=== PATIENT | female | born 1990 | race Caucasian/White ===

== ENCOUNTER 2017-10-23 10:21 | Emergency (ER) | payer MEDICAID, SELFPAY ==
[2017-10-23 10:22] VITALS: BP 148/80; PULSE 107; RESP 18; TEMP 36.6; O2SAT 98; BMI 33.8
--- NOTE | 2017-10-23 10:25 | ED.RN ---
OB CONTACTED PT IS 25 WEEKS GESTATION. STATES PT TO BE SEEN IN ED. CHARGE NURSE AWARE POLICY IS TO SEND TO OB FIRST. OB REFUSED
--- NOTE | 2017-10-23 10:45 | ED.VISSUMM ---
- ER Visit Summary Date of Service: 10/23/17 Chief Complaint: Abdominal pain History of Present Illness: The patient is a 27 F presenting with left lower quadrant abdominal pain. She states this has been ongoing since . She denies nausea or vomiting. She has mild constipation. She is 25 weeks . She denies vaginal bleeding. She states the feet she feels the baby moving as usual. She is . She has been taking Tylenol at home. She states it worsens with different positions. She talked to her CAPTAIN'S ASSISTANT and they were concerned about UTI. Physical Examination: Vitals are stable. Patient is afebrile. Alert no acute distress. HEENT exam is unremarkable. Neck is supple. Lungs are clear and equal bilaterally. Heart is regular rate and rhythm. Abdomen is soft gravid, mild left lower quadrant tenderness. No rebound or guarding. Back: nontender, no cva tenderness Extremities are unremarkable. Skin is warm and dry. No focal neurologic deficit. Remainder of exam is unremarkable. Emergency Department Course and Treatment: CBC shows white count of 13.1, hemoglobin 10.6. Chemistries unremarkable. Urinalysis shows 0-5 white cells, 5-10 epithelial cells. heart tones 160. Repeat blood pressure 137/79. Patient is feeling improved in the emergency department without any medications. Discussed with Dr. Josse Wade who recommends that she follow up early next week. Advised return to ED for any worsening complaints. Disposition: Discharge home Impression: Abdominal pain in This note was generated with [employer] dictation software. It may contain incorrect words, spelling, and punctuation that were not noted in review of the chart prior to signing ED Disposition - Plan for ED Patient: Chief Complaint: Abd Pain Referrals: Care Physician,No Primary [Primary Care Provider] -
[2017-10-23 11:00] LABS: Absolute Lymphocyte Count 2.13 X10^3/ul (0.83-4.51); Absolute Neutrophil Count 10.1 X10^3/uL (2.0-7.7); Basophil# 0.01 X10^3/uL; Basophil% 0.1 % (0-1); Eosinophil# 0.02 X10^3/uL; Eosinophils% 0.2 % (0-5); Hematocrit 30.8 % (37-47); Hemoglobin 10.6 g/dl (12.0-15.0); Lymphocyte # 2.13 X10^3/ul (4.0); Lymphocyte % 16.2 % (19-41); Mean Corp Hgb Conc 34.4 g/gl (32-36); Mean Corpuscular Hgb 30.3 pg (27.0-32.0); Mean Platelet Vol. 10.6 fl (6.2-12.0); Monocyte# 0.81 X10^3/uL; Monocyte% 6.2 % (0-10); Neutrophil # 10.09 X10^3/uL (2.7-7.7); Neutrophil % 76.8 % (47-70); Platelet Count 180 K/mm3 (150-450); RBC Distribution Width CV 13.5 % (11.6-14.6); White Blood Count 13.1 K/mm3 (4.4-11.0)
[2017-10-23 11:02] LABS: POSITIVE COUNT NO; POSITIVE DIFFERENTIAL NO; POSITIVE MORPHOLOGY NO
[2017-10-23 11:12] LABS: Anion Gap 7 (5-15); BUN 6 mg/dL (7-18); BUN/Creat Ratio 11.3 RATIO (10-20); Calcium,Total 8.7 mg/dL (8.5-10.1); Chloride 108 mmol/L (98-107); Creatinine, Serum 0.53 mg/dL (0.55-1.02); EST Glomerular Filtration Rate 147 mL/min (>60); Est Glom Filt Rate - Afr Amer 178 mL/min (>60); Glucose 91 mg/dL (74-106); Potassium 3.5 mmol/L (3.5-5.1); Sodium Level 139 mmol/L (136-145)
[2017-10-23 11:18] LABS: Color, Urine Yellow (Yellow); Glucose, Dipstick Normal (Normal); Ketone-Dipstick Negative (Negative); Leukocyte Esterase-Dipstick 25 /ul (Negative); Nitrite-Dipstick Negative (Negative); Occult Blood-Urine 250 /ul (Negative); Protein-Dipstick 100 mg/dl (Negative); Urine Bilirubin Dipstick Negative (Negative); Urine Clarity Cloudy (Clear); Urine Urobilinogen 1 mg/dl (Normal)
[2017-10-23 11:25] LABS: Bacteria 1+ /hpf (None Seen); Mucous, Urine 1+ /hpf (<or=2+); Red Blood Cells-Urine 5-10 SEEN /hpf (0-5); Squamous Epithelial Cells - UA 5-10 SEEN /hpf (5-10); White Blood Cells 0-5 SEEN /hpf (0-5)
[2017-10-23 13:25] VITALS: BP 137/79
--- NOTE | 2017-10-23 13:32 | ED.DEP ---
ED Disposition - Plan for ED Patient: Chief Complaint: Abd Pain Instructions: ED Abdominal Pain Unkn Cause Referrals: Care Physician,No Primary [Primary Care Provider] - Brittni Caldwell MD [STAFF PHYSICIAN] -
[2017-10-23 13:46] VITALS: RESP 15
== END 2017-10-23 13:47 | disposition home or self-care (01) ==
PROVIDERS: Emergency Provider Emergency Medicine
DX: O26.892 Other specified pregnancy related conditions, second trimester (principal); R10.32 Left lower quadrant pain; Z3A.25 25 weeks gestation of pregnancy
CPT/HCPCS: 80048; 81001; 85025; 99284; A4216

== ENCOUNTER → 2017-12-07 16:44 | Outpatient (CLI) | payer MEDICAID, SELFPAY ==
[2017-12-07 18:12] LABS: Protein, Urine (Random) 87.6 mg/dL (<11.9); Protein:Creat Ratio 826 mg/g CRE (0-200)
== END ==
PROVIDERS: Visit Provider Obstetrics & Gynecology
DX: R80.9 Proteinuria, unspecified (principal)
CPT/HCPCS: 82570; 84156

== ENCOUNTER 2017-12-08 15:15 | Outpatient (CLI) | payer MEDICAID, SELFPAY ==
[2017-12-08 15:38] VITALS: BMI 34.0
[2017-12-08] MEDS: Ondansetron 4 MG/2 ML Vial IV (16:21)
[2017-12-08] MEDS: proMETHazine 25 MG/ML Syringe 12.5 MG IV (16:21)
[2017-12-08] MEDS: Dextrose 5%-Lactated Ringers 1,000 ML 999 ML IV (16:22)
[2017-12-08 16:35] LABS: Hematocrit 30.9 % (37-47); Hemoglobin 10.4 g/dl (12.0-15.0); Mean Corp Hgb Conc 33.7 g/gl (32-36); Mean Corpuscular Hgb 29.2 pg (27.0-32.0); Mean Corpuscular Volume 86.8 fL (81-99); Platelet Count 181 K/mm3 (150-450); RBC Distribution Width CV 13.4 % (11.6-14.6); RBC Distribution Width SD 41.2 fl (35.1-43.9); Red Blood Count 3.56 M/mm3 (4.2-5.4); White Blood Count 11.8 K/mm3 (4.4-11.0)
[2017-12-08 16:36] LABS: Scan Indicated on CBC? Y/N NO
[2017-12-08 16:48] LABS: ALB/GLOB Ratio 0.6 RATIO (0.9-2.4); AST(SGOT) 24 U/L (15-37); Alanine Aminotransfer ALT/SGPT 31 U/L (13-56); Albumin, Serum 2.4 g/dL (3.2-5.0); Alkaline Phosphatase 162 U/L (45-117); Anion Gap 9 (5-15); BUN 6 mg/dL (7-18); BUN/Creat Ratio 10.9 RATIO (10-20); Calcium,Total 8.6 mg/dL (8.5-10.1); Chloride 109 mmol/L (98-107); Creatinine, Serum 0.55 mg/dL (0.55-1.02); EST Glomerular Filtration Rate 140 mL/min (>60); Est Glom Filt Rate - Afr Amer 170 mL/min (>60); Estimated Creatinine Clearance 121.52 ml/min; Globulin 4.2 g/dL (2.2-4.2); Glucose 106 mg/dL (74-106); Potassium 3.5 mmol/L (3.5-5.1); Protein, Total 6.6 g/dL (6.4-8.2); Sodium Level 141 mmol/L (136-145)
[2017-12-08] MEDS: Lactated Ringers 1,000 ML 200 ML IV (17:26)
--- NOTE | 2017-12-09 02:35 | OB.TRI.NOTE ---
History of Present Illness Date of Service: 12/08/17 Reason For Visit: NAUSEA AND VOMITING Date of Service: 12/08/17 Final CRESCENCIO: 01/31/18 Gestational age: 32 Weeks and 3 Days History of Present Illness: 27 yo @ 32w2d presents with itnractable nausea and vomiting for a few days. she denies any sick contacts and denies diarrhea or fever. she feels weak and dizy and can't charis even fluids down. she has had hyperemesis but was controlled with zzofran and now isn't Home Medications Medication Instructions Recorded Pnv No.95/Ferrous Fum/Folic AC 1 tab PO DAILY 07/16/17 [ Multivitamin Tablet] Ondansetron [Zofran Odt] 4 mg PO Q8H PRN PRN 12/08/17 Allergies No Known Allergies Allergy (Verified 12/07/17 08:40) - Pertinent Past Medical History Pertinent Past Medical History: All Active Problems (Last Reviewed 12/07/17 @ 08:40 by Emma Bergeron) Proteinuria affecting in third trimester (Acute) Contraception management (Acute) Family history of defect (Acute) Rubella non-immune status, antepartum (Acute) Nausea/vomiting in (Acute) Supervision of normal (Acute) Otitis media (Resolved) Physical Exam General: Alert Cardiovascular: Tachycardic Lungs: Normal air movement Abdomen: Soft, Non Tender, Gravid NST - FHR Rate Baby A Baseline: 130 Variability:: Moderate Accelerations:: 15 x 15 Decelerations:: None NST Reactive:: Yes FHR Category:: Category I Uterine Activity:: no regular Impression/Plan 32 weeks nausea vomiting dehydration IVFs, labs WNL, anti emetics- dc home
== END 2017-12-08 18:15 | disposition home or self-care (01) ==
LOC: WPOUT 15:22 → WP 15:23
PROVIDERS: Visit Provider Obstetrics & Gynecology
DX: O21.9 Vomiting of pregnancy, unspecified (principal); E86.0 Dehydration; Z3A.32 32 weeks gestation of pregnancy
CPT/HCPCS: 96361 ×2; 96374; 96375; 36415; 59025; 59050; 80053; 85027; 99218; J7120; A4216; G0378; J2405

== ENCOUNTER → 2017-12-13 17:30 | Outpatient (CLI) | payer MEDICAID, SELFPAY | PROVIDERS: Visit Provider Obstetrics & Gynecology | DX: Z34.90 Encounter for supervision of normal pregnancy, unspecified, unspecified trimester (principal) | CPT/HCPCS: 87086; 87088 ==

== ENCOUNTER → 2017-12-21 16:59 | Outpatient (CLI) | payer MEDICAID, SELFPAY ==
[2017-12-21 17:17] LABS: Protein, Urine (Random) 140.3 mg/dL (<11.9); Protein:Creat Ratio 1564 mg/g CRE (0-200)
== END ==
PROVIDERS: Visit Provider Obstetrics & Gynecology
DX: O12.13 Gestational proteinuria, third trimester (principal); Z3A.00 Weeks of gestation of pregnancy not specified
CPT/HCPCS: 82570; 84156

== ENCOUNTER → 2017-12-22 10:50 | Outpatient (CLI) | payer MEDICAID, SELFPAY ==
[2017-12-22 11:34] LABS: Absolute Lymphocyte Count 2.21 X10^3/ul (0.83-4.51); Absolute Neutrophil Count 9.8 X10^3/uL (2.0-7.7); Basophil# 0.02 X10^3/uL; Basophil% 0.2 % (0-1); Eosinophil# 0.03 X10^3/uL; Eosinophils% 0.2 % (0-5); Hemoglobin 10.9 g/dl (12.0-15.0); Lymphocyte # 2.21 X10^3/ul (4.0); Mean Corpuscular Hgb 28.4 pg (27.0-32.0); Mean Corpuscular Volume 85.9 fL (81-99); Mean Platelet Vol. 11.1 fl (6.2-12.0); Monocyte# 0.89 X10^3/uL; Monocyte% 6.8 % (0-10); Neutrophil # 9.76 X10^3/uL (2.7-7.7); Platelet Count 182 K/mm3 (150-450); RBC Distribution Width CV 13.5 % (11.6-14.6); RBC Distribution Width SD 41.5 fl (35.1-43.9); Red Blood Count 3.84 M/mm3 (4.2-5.4)
[2017-12-22 11:35] LABS: POSITIVE COUNT NO; POSITIVE DIFFERENTIAL NO; POSITIVE MORPHOLOGY NO
[2017-12-22 12:33] LABS: ALB/GLOB Ratio 0.6 RATIO (0.9-2.4); AST(SGOT) 18 U/L (15-37); Alanine Aminotransfer ALT/SGPT 20 U/L (13-56); Albumin, Serum 2.4 g/dL (3.2-5.0); Alkaline Phosphatase 195 U/L (45-117); Anion Gap 10 (5-15); BUN 4 mg/dL (7-18); BUN/Creat Ratio 6.6 RATIO (10-20); Calcium,Total 8.7 mg/dL (8.5-10.1); Chloride 107 mmol/L (98-107); EST Glomerular Filtration Rate 126 mL/min (>60); Est Glom Filt Rate - Afr Amer 153 mL/min (>60); Globulin 4.2 g/dL (2.2-4.2); Glucose 101 mg/dL (74-106); LDH 178 U/L (84-246); Potassium 3.6 mmol/L (3.5-5.1); Protein, Total 6.6 g/dL (6.4-8.2); Sodium Level 138 mmol/L (136-145); Uric Acid 4.7 mg/dL (2.6-6.0)
== END ==
PROVIDERS: Visit Provider Obstetrics & Gynecology
DX: O12.13 Gestational proteinuria, third trimester (principal); Z3A.00 Weeks of gestation of pregnancy not specified
CPT/HCPCS: 36415; 80053; 83615; 84550; 85025; 87086; 87088

== ENCOUNTER → 2017-12-22 14:28 | Outpatient (CLI) | payer MEDICAID, SELFPAY | PROVIDERS: Visit Provider Obstetrics & Gynecology | DX: O12.13 Gestational proteinuria, third trimester (principal); Z3A.00 Weeks of gestation of pregnancy not specified | CPT/HCPCS: 87086 ==

== ENCOUNTER → 2017-12-24 13:43 | Outpatient (CLI) | payer MEDICAID, SELFPAY ==
[2017-12-24 13:12] LABS: Absolute Lymphocyte Count 2.53 X10^3/ul (0.83-4.51); Absolute Neutrophil Count 10.4 X10^3/uL (2.0-7.7); Basophil# 0.02 X10^3/uL; Basophil% 0.1 % (0-1); Eosinophil# 0.02 X10^3/uL; Eosinophils% 0.1 % (0-5); Hematocrit 33.7 % (37-47); Hemoglobin 11.2 g/dl (12.0-15.0); Lymphocyte # 2.53 X10^3/ul (4.0); Lymphocyte % 18.2 % (19-41); Mean Corp Hgb Conc 33.2 g/gl (32-36); Mean Corpuscular Hgb 28.6 pg (27.0-32.0); Mean Corpuscular Volume 86.2 fL (81-99); Mean Platelet Vol. 11.3 fl (6.2-12.0); Monocyte# 0.83 X10^3/uL; Neutrophil # 10.44 X10^3/uL (2.7-7.7); Platelet Count 188 K/mm3 (150-450); RBC Distribution Width CV 13.6 % (11.6-14.6); RBC Distribution Width SD 41.9 fl (35.1-43.9); Red Blood Count 3.91 M/mm3 (4.2-5.4); White Blood Count 13.9 K/mm3 (4.4-11.0)
[2017-12-24 13:16] LABS: POSITIVE COUNT NO; POSITIVE DIFFERENTIAL NO; POSITIVE MORPHOLOGY NO
[2017-12-24 13:27] LABS: Glucose Challenge Gest 1H 50g 116 mg/dL (70-140)
--- NOTE | 2017-12-24 13:44 | US_ITS ---
STUDY: SECOND AND THIRD TRIMESTER OBSTETRICAL ULTRASOUND - LIMITED REASON FOR EXAM: Female, 27 years old. growth. LMP: 04/26/2017 PRIOR ULTRASOUND: None. TECHNIQUE: Transabdominal ultrasound evaluation was performed. FINDINGS: There is a single intrauterine fetus. The fetus is in a cephalic presentation. There is demonstrated cardiac activity with a heart rate of 139 bpm. There is a normal amniotic fluid volume. The largest amniotic fluid pocket measures 3.1 cm. The amniotic fluid index (MENA) is 6.11 cm. The placenta is posterior and not low lying There are Grade 0 placental changes. The cervix is not visualized. BIOMETRY: BPD: 9.22 cm: 37 weeks, 4 days HC: 32.5 cm: 36 weeks, 6 days AC: 32.96 cm: 37 weeks, 0 days FL: 7.18 cm: 36 weeks, 6 days Age by LMP: 34 weeks, 4 days. CRESCENCIO by LMP: 01/31/2018. age by prior US: 20 weeks, 2 days. CRESCENCIO by prior US: January 22, 2018. age by current US: 37 weeks, 1 days. CRESCENICO by current US: January 13, 2018. Estimated weight: 3066 grams, +/- 448 grams US/OB Limited With Biometrics IMPRESSION: Single intrauterine fetus with an estimated gestational age by ultrasound of 37 weeks and 1 day. Electronically Signed: Tamiko Dos Santos MD at 23:22 EDT Tel , Service support ,
== END ==
PROVIDERS: Visit Provider Obstetrics & Gynecology
DX: O12.13 Gestational proteinuria, third trimester (principal); Z3A.00 Weeks of gestation of pregnancy not specified
CPT/HCPCS: 36415; 76816; 82950; 85025

== ENCOUNTER → 2017-12-27 13:15 | Outpatient (CLI) | payer MEDICAID, SELFPAY ==
[2017-12-27 13:30] LABS: Protein, Urine (Random) 187.2 mg/dL (<11.9); Protein:Creat Ratio 723 mg/g CRE (0-200)
== END ==
PROVIDERS: Visit Provider Nurse Practitioner Women's Health
DX: O12.13 Gestational proteinuria, third trimester (principal); Z3A.00 Weeks of gestation of pregnancy not specified
CPT/HCPCS: 82570; 84156

== ENCOUNTER → 2018-01-04 10:15 | Outpatient (CLI) | payer MEDICAID, SELFPAY ==
[2018-01-04 11:45] LABS: Absolute Lymphocyte Count 2.46 X10^3/ul (0.83-4.51); Absolute Neutrophil Count 10.7 X10^3/uL (2.0-7.7); Basophil# 0.01 X10^3/uL; Basophil% 0.1 % (0-1); Eosinophil# 0.02 X10^3/uL; Eosinophils% 0.1 % (0-5); Hematocrit 34.5 % (37-47); Hemoglobin 11.1 g/dl (12.0-15.0); Lymphocyte # 2.46 X10^3/ul (4.0); Lymphocyte % 17.3 % (19-41); Mean Corp Hgb Conc 32.2 g/gl (32-36); Mean Corpuscular Hgb 27.7 pg (27.0-32.0); Mean Platelet Vol. 11.6 fl (6.2-12.0); Monocyte# 0.93 X10^3/uL; Monocyte% 6.5 % (0-10); Neutrophil # 10.73 X10^3/uL (2.7-7.7); Neutrophil % 75.5 % (47-70); Platelet Count 184 K/mm3 (150-450); RBC Distribution Width CV 14.1 % (11.6-14.6); RBC Distribution Width SD 43.8 fl (35.1-43.9); Red Blood Count 4.01 M/mm3 (4.2-5.4); White Blood Count 14.2 K/mm3 (4.4-11.0)
[2018-01-04 11:47] LABS: POSITIVE COUNT NO; POSITIVE DIFFERENTIAL NO
[2018-01-04 11:48] LABS: POSITIVE MORPHOLOGY NO
[2018-01-04 12:28] LABS: ALB/GLOB Ratio 0.5 RATIO (0.9-2.4); AST(SGOT) 19 U/L (15-37); Alanine Aminotransfer ALT/SGPT 20 U/L (13-56); Albumin, Serum 2.4 g/dL (3.2-5.0); Alkaline Phosphatase 243 U/L (45-117); Anion Gap 9 (5-15); BUN 6 mg/dL (7-18); Calcium,Total 8.9 mg/dL (8.5-10.1); Chloride 107 mmol/L (98-107); Creatinine, Serum 0.67 mg/dL (0.55-1.02); EST Glomerular Filtration Rate 112 mL/min (>60); Est Glom Filt Rate - Afr Amer 136 mL/min (>60); Globulin 4.7 g/dL (2.2-4.2); Glucose 69 mg/dL (74-106); LDH 183 U/L (84-246); Potassium 3.8 mmol/L (3.5-5.1); Protein, Total 7.1 g/dL (6.4-8.2); Sodium Level 139 mmol/L (136-145); Uric Acid 4.8 mg/dL (2.6-6.0)
[2018-01-04 17:17] LABS: Protein, Urine (Random) 162.1 mg/dL (<11.9); Protein:Creat Ratio 2342 mg/g CRE (0-200)
[2018-01-04 18:33] LABS: Group B Strep DNA By PCR POSITIVE (Negative); Probe Check PASS
== END ==
PROVIDERS: Visit Provider Nurse Practitioner Women's Health
DX: O12.13 Gestational proteinuria, third trimester (principal); Z3A.36 36 weeks gestation of pregnancy
CPT/HCPCS: 36415; 80053; 82570; 83615; 84156; 84550; 85025; 87653

== ENCOUNTER 2018-01-06 10:15 | Outpatient (CLI) | payer MEDICAID, SELFPAY ==
[2018-01-06 10:25] VITALS: BMI 33.8
[2018-01-06] MEDS: Dextrose 5%-Lactated Ringers 1,000 ML 999 ML IV (11:10)
[2018-01-06 11:20] LABS: Hematocrit 32.9 % (37-47); Hemoglobin 10.9 g/dl (12.0-15.0); Mean Corp Hgb Conc 33.1 g/gl (32-36); Mean Corpuscular Hgb 27.9 pg (27.0-32.0); Mean Corpuscular Volume 84.4 fL (81-99); Mean Platelet Vol. 10.9 fl (6.2-12.0); Platelet Count 188 K/mm3 (150-450); RBC Distribution Width CV 14.2 % (11.6-14.6); RBC Distribution Width SD 43.1 fl (35.1-43.9); White Blood Count 11.6 K/mm3 (4.4-11.0)
[2018-01-06 11:21] LABS: Scan Indicated on CBC? Y/N NO
[2018-01-06 11:29] LABS: Prothrombin Time (Protime)PT. 12.7 SECONDS (11.7-14.9)
[2018-01-06 11:30] LABS: Partial Thromboplast Time 25.2 Seconds (24.1-36.2)
[2018-01-06 11:34] LABS: AST(SGOT) 21 U/L (15-37); Alanine Aminotransfer ALT/SGPT 21 U/L (13-56); Creatinine, Serum 0.65 mg/dL (0.55-1.02); EST Glomerular Filtration Rate 116 mL/min (>60); Est Glom Filt Rate - Afr Amer 141 mL/min (>60); Estimated Creatinine Clearance 102.82 ml/min; Uric Acid 5.5 mg/dL (2.6-6.0)
[2018-01-06 12:50] LABS: Protein, Urine (Random) 143.3 mg/dL (<11.9); Protein:Creat Ratio 1655 mg/g CRE (0-200)
--- NOTE | 2018-01-06 16:17 | OB.TRI.NOTE ---
History of Present Illness Date of Service: 01/06/18 Was patient seen by the physician?: Yes Reason For Visit: R/O PRE-E Date of Service: 01/06/18 Final CRESCENCIO: 01/31/18 Gestational age: 36 Weeks and 3 Days History of Present Illness: 27 y @ 36w3d presents with elevated bps and headache. she felt better after resting and getting IVFs. she was also having nausea. she denies any vaginla bleeding or loss of fluid. s he has had all normal to mildly elevated bps Home Medications Medication Instructions Recorded Pnv No.95/Ferrous Fum/Folic AC 1 tab PO DAILY 07/16/17 [ Multivitamin Tablet] Ondansetron [Zofran Odt] 4 mg PO Q8H PRN PRN 12/08/17 proMETHazine tablet [Phenergan] 12.5 mg PO Q6H PRN PRN #60 tab 12/09/17 ofloxacin 0.3 % ear drops 10 drp OTIC QDAY 7 Days #10 ml 01/01/18 Blood Pressure Test Kit [Blood 1 x .ROUTE .MEDSUPPLY 01/06/18 Pressure Monitor] Allergies No Known Allergies Allergy (Verified 01/04/18 08:58) - Pertinent Past Medical History Pertinent Past Medical History: Mom's Labs & Results 01/06/18 01/06/18 01/06/18 11:10 11:10 11:10 WBC 11.6 H RBC 3.90 L Hgb 10.9 L Hct 32.9 L MCV 84.4 MCH 27.9 MCHC 33.1 RDW 14.2 RDW Differential 43.1 Plt Count 188 MPV 10.9 PT 12.7 INR 1.0 APTT 25.2 Creatinine 0.65 Estim Creat Clear Calc 102.82 Est GFR (MDRD) Af Amer 141 Est GFR (MDRD) Non-Af 116 Uric Acid 5.5 AST 21 ALT 21 U Random Total Protein Urine Creatinine Protein/Creatinin Ratio 01/06/18 12:30 WBC RBC Hgb Hct MCV MCH MCHC RDW RDW Differential Plt Count MPV PT INR APTT Creatinine Estim Creat Clear Calc Est GFR (MDRD) Af Amer Est GFR (MDRD) Non-Af Uric Acid AST ALT U Random Total Protein 143.3 H Urine Creatinine 86.60 Protein/Creatinin Ratio 1655 H Social History Smoking Status Never smoker Physical Exam General: Alert Cardiovascular: Regular rate Lungs: Normal air movement Abdomen: Soft, Non Tender NST - FHR Rate Baby A Baseline: 140 Variability:: Moderate Accelerations:: 15 x 15 Decelerations:: None NST Reactive:: Yes FHR Category:: Category I Uterine Activity:: none Impression/Plan 27 yo presents with preeclampsia with mild feature- normal labs and mildly elevated to normal bps. reactive nst. plan dc home plan IOL wednesday
== END 2018-01-06 13:12 | disposition home or self-care (01) ==
LOC: WPOUT 10:19 → WP 10:20
PROVIDERS: Visit Provider Obstetrics & Gynecology
DX: O14.03 Mild to moderate pre-eclampsia, third trimester (principal); Z3A.36 36 weeks gestation of pregnancy
CPT/HCPCS: 96361; 96374; 59025; 59050; 82565; 82570; 84156; 84450; 84460; 84550; 85027; 85610; 85730; 99218; A4216; G0378

== ENCOUNTER 2018-01-10 07:05 | Inpatient (IN) | payer MEDICAID, SELFPAY ==
[2018-01-10 07:12] VITALS: BMI 34.4
[2018-01-10] MEDS: Lactated Ringers 1,000 ML 50 ML IV ×4 (07:35→21:50)
[2018-01-10] MEDS: Oxytocin 30 units/NS 500 ml 30 UNITS/500 ML IV.SOLN IV (07:50)
[2018-01-10 07:54] LABS: Hematocrit 31.9 % (37-47); Hemoglobin 10.7 g/dl (12.0-15.0); Mean Corp Hgb Conc 33.5 g/gl (32-36); Mean Corpuscular Hgb 28.4 pg (27.0-32.0); Mean Corpuscular Volume 84.6 fL (81-99); Mean Platelet Vol. 11.1 fl (6.2-12.0); Platelet Count 193 K/mm3 (150-450); RBC Distribution Width CV 13.9 % (11.6-14.6); RBC Distribution Width SD 41.9 fl (35.1-43.9); Red Blood Count 3.77 M/mm3 (4.2-5.4); Scan Indicated on CBC? Y/N NO
[2018-01-10] MEDS: 0.9% Normal Saline 100 ML IV.SOLN. INTRA-UTER (08:07)
[2018-01-10] MEDS: fentaNYL-bupivacaine (epidural) 100 ML BAG EPIDURAL ×3 (13:18→22:30)
[2018-01-10] MEDS: Ondansetron 4 MG/2 ML Vial IV (17:44)
--- NOTE | 2018-01-10 23:21 | PCM.HP.OB ---
- Problem List (1) Contraception management Status: Acute Qualifiers: Comment: Mirena IUD 6 weeks (2) Family history of defect Status: Acute Comment: FOB has arthrogryposis (3) GBS (group B Streptococcus carrier), +RV culture, currently Status: Acute Comment: Antibiotic in labor (4) LGA (large for gestational age) fetus Status: Acute Comment: will discuss at next visit (5) Nausea/vomiting in Status: Acute Comment: zofran PRN (6) Pre-eclampsia Status: Acute Qualifiers: (7) Rubella non-immune status, antepartum Status: Acute Comment: mmr History Date of Admission: 01/10/18 Final CRESCENCIO: 01/31/18 Gestational age: 37 Weeks and 0 Days History of this : 27 yo @ 37 weeks presents for IOL secondary to preeclampsia Pertinent Past Medical History: Mom's Labs & Results 01/10/18 01/10/18 07:40 07:40 WBC 14.0 H RBC 3.77 L Hgb 10.7 L Hct 31.9 L MCV 84.6 MCH 28.4 MCHC 33.5 RDW 13.9 RDW Differential 41.9 Plt Count 193 MPV 11.1 Blood Type A POSITIVE Antibody Screen NEGATIVE Course Did the patient receive Yes care? Labs Blood Type: A RH: POSITIVE RPR/VDRL/Syphilis Nonreactive Rubella status Non-immune HbSAg Negative Date Done: 06/22/17 Chlamydia Negative Gonorrhea Negative HIV/AIDS Non-Reactive Group B Strep: Positive Current Obstetrical History Gestational Diabetes No Incompetent Cervix No Infertility No IUGR No Macrosomia No Hypertension/Pre-eclampsia Yes: No meds Placenta Previa/Abruption No PTL/PROM No Uterine anomaly No Oligohydramnios No Polyhydramnios No Multiple gestation No Past Medical History Asthma No Diabetes No Hypertension No Heart disease No Mitral valve prolapse No Neurologic/Seizure disorder/ No Migraines Kidney disease No Liver disease No Varicosities No Clotting disorders/Hx of DVT No Thyroid Dysfunction No Other medical diseases No Psychiatric disorders No Major trauma No Abnormal PAP smear No Sleep apnea No Mammogram in the last 2 years No Social History Marital Status: Alleged father Richard Zimmerman Hx Smoking Yes Smoking Status Former smoker Allergies No Known Allergies Allergy (Verified 01/10/18 09:06) Current Medications Acetaminophen (Tylenol) 325 - 650 mg PO Q4H PRN PRN PRN Reason: PAIN OR FEVER >100.4F Al Hydroxide/Mg Hydroxide (Mylanta Ii) 15 - 30 ml PO Q4H PRN PRN PRN Reason: INDIGESTION Citric Acid/Sodium Citrate (Bicitra) 30 ml PO UD PRN Oxytocin/Sodium Chloride () 30 units in 500 mls @ 1 mls/hr IV .Q500H [facility] Last Admin: 01/10/18 07:50 Dose: 1 mls/hr Lactated Ringer's () 1,000 mls @ 50 mls/hr IV .Q20H [facility] Last Admin: 01/10/18 21:50 Dose: 50 mls/hr Penicillin G Potassium/Dextrose (Penicillin G Potassium) 3 mu in 50 mls @ 100 mls/hr IV Q4H [facility] Last Admin: 01/10/18 21:50 Dose: 100 mls/hr Naloxone HCl 4 mg/ Dextrose 504 mls @ 0 mls/hr IV PRN PRN; Protocol PRN Reason: TO MAINTAIN RR>10 Nalbuphine HCl (Nubain) 5 - 10 mg IV Q3H PRN PRN PRN Reason: PAIN (4-10/10) Nalbuphine HCl (Nubain) 5 mg IV Q3H PRN PRN Reason: ITCHING Stop: 01/11/18 14:09 Naloxone HCl (Narcan) 0.2 mg IV Q1M PRN PRN Reason: RR<10 AND PT UNRESPONSIVE Stop: 01/11/18 14:09 Ondansetron HCl (Zofran) 4 mg IV Q8H PRN PRN PRN Reason: NAUSEA Last Admin: 01/10/18 17:44 Dose: 4 mg Promethazine HCl (Phenergan) 6.25 - 12.5 mg IV Q4H PRN PRN; Protocol PRN Reason: IF NAUSEA PERSISTS Sodium Chloride () 5 - 15 ml IV UD [facility] Last Admin: 01/10/18 08:57 Dose: Not Given Smoking Status: Former smoker Alcohol: None Drug Use: none Number of Fetus(es): 1 - fht 140s moderate variability recative Review of Systems Constitutional: Denies: Chills, Fever, Weight Change HEENT: Denies: Head Aches, Sinus Congestion, Sinus Drainage Cardiovascular: Denies: Chest Pain, Palpitations Respiratory: Denies: Cough, Shortness of breath at rest, Sputum production Gastrointestinal: Denies: Abdominal Pain, Nausea, Vomiting Genitourinary: Denies: Dysuria Musculoskeletal: Denies: Joint Pain, Joint Tenderness Skin: Denies: Rash, Wounds Neurological: Denies: Numbness, Tingling, Focal weakness Psychiatric: Denies: Anxiety, Depression, Homicidal Ideations, Suicidal Ideations Hematologic/ Lymphatic: Denies: Easy Bruising, Easy Bleeding Physical Exam General: Alert, Oriented x3, No apparent distress Cardiovascular: Regular rate Lungs: Normal air movement Abdomen: Soft, Gravid Estimated gestational size: Appropriate for gestational size Presentation: Cephalic Assessment/Plan 27yo @ 37 weeks IOL preeclampsia admit IOL pitocin and fb, pcn for GBS prophylaxis. expectant mangement of bps
--- NOTE | 2018-01-10 23:24 | HP.PCM_ITS ---
- Problem List (1) Contraception management Status: Acute Qualifiers: Comment: Mirena IUD 6 weeks (2) Family history of defect Status: Acute Comment: FOB has arthrogryposis (3) GBS (group B Streptococcus carrier), +RV culture, currently Status: Acute Comment: Antibiotic in labor (4) LGA (large for gestational age) fetus Status: Acute Comment: will discuss at next visit (5) Nausea/vomiting in Status: Acute Comment: zofran PRN (6) Pre-eclampsia Status: Acute Qualifiers: (7) Rubella non-immune status, antepartum Status: Acute Comment: mmr History Date of Admission: 01/10/18 Final CRESCENCIO: 01/31/18 Gestational age: 37 Weeks and 0 Days History of this : 27 yo @ 37 weeks presents for IOL secondary to preeclampsia Pertinent Past Medical History: Mom's Labs & Results 01/10/18 01/10/18 07:40 07:40 WBC 14.0 H RBC 3.77 L Hgb 10.7 L Hct 31.9 L MCV 84.6 MCH 28.4 MCHC 33.5 RDW 13.9 RDW Differential 41.9 Plt Count 193 MPV 11.1 Blood Type A POSITIVE Antibody Screen NEGATIVE Course Did the patient receive Yes care? Labs Blood Type: A RH: POSITIVE RPR/VDRL/Syphilis Nonreactive Rubella status Non-immune HbSAg Negative Date Done: 06/22/17 Chlamydia Negative Gonorrhea Negative HIV/AIDS Non-Reactive Group B Strep: Positive Current Obstetrical History Gestational Diabetes No Incompetent Cervix No Infertility No IUGR No Macrosomia No Hypertension/Pre-eclampsia Yes: No meds Placenta Previa/Abruption No PTL/PROM No Uterine anomaly No Oligohydramnios No Polyhydramnios No Multiple gestation No Past Medical History Asthma No Diabetes No Hypertension No Heart disease No Mitral valve prolapse No Neurologic/Seizure disorder/ No Migraines Kidney disease No Liver disease No Varicosities No Clotting disorders/Hx of DVT No Thyroid Dysfunction No Other medical diseases No Psychiatric disorders No Major trauma No Abnormal PAP smear No Sleep apnea No Mammogram in the last 2 years No Social History Marital Status: Alleged father Richard Zimmerman Hx Smoking Yes Smoking Status Former smoker Allergies No Known Allergies Allergy (Verified 01/10/18 09:06) Current Medications Acetaminophen (Tylenol) 325 - 650 mg PO Q4H PRN PRN PRN Reason: PAIN OR FEVER >100.4F Al Hydroxide/Mg Hydroxide (Mylanta Ii) 15 - 30 ml PO Q4H PRN PRN PRN Reason: INDIGESTION Citric Acid/Sodium Citrate (Bicitra) 30 ml PO UD PRN Oxytocin/Sodium Chloride () 30 units in 500 mls @ 1 mls/hr IV .Q500H [facility] Last Admin: 01/10/18 07:50 Dose: 1 mls/hr Lactated Ringer's () 1,000 mls @ 50 mls/hr IV .Q20H [facility] Last Admin: 01/10/18 21:50 Dose: 50 mls/hr Penicillin G Potassium/Dextrose (Penicillin G Potassium) 3 mu in 50 mls @ 100 mls/hr IV Q4H [facility] Last Admin: 01/10/18 21:50 Dose: 100 mls/hr Naloxone HCl 4 mg/ Dextrose 504 mls @ 0 mls/hr IV PRN PRN; Protocol PRN Reason: TO MAINTAIN RR>10 Nalbuphine HCl (Nubain) 5 - 10 mg IV Q3H PRN PRN PRN Reason: PAIN (4-10/10) Nalbuphine HCl (Nubain) 5 mg IV Q3H PRN PRN Reason: ITCHING Stop: 01/11/18 14:09 Naloxone HCl (Narcan) 0.2 mg IV Q1M PRN PRN Reason: RR<10 AND PT UNRESPONSIVE Stop: 01/11/18 14:09 Ondansetron HCl (Zofran) 4 mg IV Q8H PRN PRN PRN Reason: NAUSEA Last Admin: 01/10/18 17:44 Dose: 4 mg Promethazine HCl (Phenergan) 6.25 - 12.5 mg IV Q4H PRN PRN; Protocol PRN Reason: IF NAUSEA PERSISTS Sodium Chloride () 5 - 15 ml IV UD [facility] Last Admin: 01/10/18 08:57 Dose: Not Given Smoking Status: Former smoker Alcohol: None Drug Use: none Number of Fetus(es): 1 - fht 140s moderate variability recative Review of Systems Constitutional: Denies: Chills, Fever, Weight Change HEENT: Denies: Head Aches, Sinus Congestion, Sinus Drainage Cardiovascular: Denies: Chest Pain, Palpitations Respiratory: Denies: Cough, Shortness of breath at rest, Sputum production Gastrointestinal: Denies: Abdominal Pain, Nausea, Vomiting Genitourinary: Denies: Dysuria Musculoskeletal: Denies: Joint Pain, Joint Tenderness Skin: Denies: Rash, Wounds Neurological: Denies: Numbness, Tingling, Focal weakness Psychiatric: Denies: Anxiety, Depression, Homicidal Ideations, Suicidal Ideations Hematologic/ Lymphatic: Denies: Easy Bruising, Easy Bleeding Physical Exam General: Alert, Oriented x3, No apparent distress Cardiovascular: Regular rate Lungs: Normal air movement Abdomen: Soft, Gravid Estimated gestational size: Appropriate for gestational size Presentation: Cephalic Assessment/Plan 27yo @ 37 weeks IOL preeclampsia admit IOL pitocin and fb, pcn for GBS prophylaxis. expectant mangement of bps
--- NOTE | 2018-01-10 23:24 | PCM.PN.BLA ---
Progress Note fht 140s moderate variability some early decels, 9 cm dilated redosed on epidural, continue pit per protocol
[2018-01-11] MEDS: Lactated Ringers 1,000 ML 50 ML IV (01:50)
[2018-01-11] MEDS: Oxytocin 30 units/NS 500 ml 30 UNITS/500 ML IV.SOLN 334 UNITS IV (02:51)
--- NOTE | 2018-01-11 02:57 | PCM.OB.VAG ---
- Problem List (1) Contraception management Status: Acute Qualifiers: Comment: Mirena IUD 6 weeks (2) Family history of defect Status: Acute Comment: FOB has arthrogryposis (3) GBS (group B Streptococcus carrier), +RV culture, currently Status: Acute Comment: Antibiotic in labor (4) LGA (large for gestational age) fetus Status: Acute Comment: will discuss at next visit (5) Nausea/vomiting in Status: Acute Comment: zofran PRN (6) Pre-eclampsia Status: Acute Qualifiers: (7) Rubella non-immune status, antepartum Status: Acute Comment: mmr Vaginal Delivery Maternal Presentation: Medically Indicated Induction 27 yo @ 37 weeks presents for IOL secondary to preclampsia with mild features Method of Induction: Pitocin, [facility] Reason for Induction: Preeclampsia, eclampsia Amniotic Membrane Rupture Type: Artificial Amniotic Fluid Description: Clear Final CRESCENCIO: 01/31/18 Gestational age: 37 Weeks and 1 Days Date of Procedure: 01/11/18 Pre-Operative Diagnosis: iol pree Post-Operative Diagnosis: same Surgery/ Procedure Performed: Vacuum Assisted Vaginal Delivery Type of Anesthesia: Epidural Description of Procedure: Patient began pushing and pushed for two hours with successful progress and descent, but then epidural analgesia as found to be insufficient and the patient was having difficulty effectively pushing due to the pain, and the head was at a +3 station with pushing and pelvis was felt to be adequate for delivery of a 7 lb . It was offered to the mother for an elective VAVD to shorten second stage, risks were discussed and patient agreed to delivery. vacuum applied with the pressure in the green range applied for a total of 5-6 minutes, pulls with 2 contractions and no popoffs. the head crowned and the vacuum released, midline episiotomy cut and then I delivered the head in the NIRANJAN presentation. The head was delivered atraumatically and a loose nuchal cord ?1 was identified and easily reduced over the infant's head. The anterior and posterior shoulders delivered without complication followed by the rest of the and the was placed on the maternal abdomen. Delayed cord clamping was employed for approximately 60 seconds. Cord was clamped and cut and gentle traction was applied to the cord and the placenta delivered spontaneously immediately following it was noted to be intact with three-vessel cord. The perineum and vagina were inspected and noted to have only the midline episiotomy with no extension, equivalent to a second degree laceration. this was repaired in the usual fashion with 3-0 vicryl rapide. EBL was 400 cc. Patient and infant tolerated delivery well. Presentation: NIRANJAN Placental Delivery Description: Spontaneous Placenta Disposition: [facility] Cord Vessel Description: 3 Vessels Cord Entanglement: Around neck x 1, loose A gender: Male Episiotomy Description: Midline, Perineal Extension/lac, 2nd degree Medications given after delivery: IV Pitocin Complications: None
[2018-01-11] MEDS: Oxytocin 30 units/NS 500 ml 30 UNITS/500 ML IV.SOLN 167 UNITS IV (03:20)
[2018-01-11] MEDS: 0.9% Saline Lock 10 ML Syringe IV (04:05)
[2018-01-11] MEDS: Naproxen 250 MG Tablet PO ×3 (04:16→20:41)
[2018-01-11] MEDS: Senna/Docusate Sodium 1 Tablet PO (07:44)
[2018-01-11] MEDS: oxyCODONE 5 MG Tablet PO (07:44)
[2018-01-11 07:48] VITALS: BP 110/73; RESP 18; TEMP 36.9; O2SAT 98
[2018-01-11 12:29] VITALS: BP 135/66; PULSE 99; RESP 16; TEMP 36.8; O2SAT 95
[2018-01-11 15:53] VITALS: BP 121/79; PULSE 87; RESP 14; TEMP 36.8; O2SAT 98
[2018-01-11 20:43] VITALS: BP 138/82; PULSE 83; RESP 16; TEMP 36.7
[2018-01-11 23:41] VITALS: BP 139/89; PULSE 82; RESP 18; TEMP 36.8
[2018-01-12 04:00] VITALS: BP 125/73; PULSE 90; RESP 18; TEMP 37.2; O2SAT 98
[2018-01-12 07:50] VITALS: BP 123/69; PULSE 83; RESP 18; TEMP 36.6; O2SAT 98
--- NOTE | 2018-01-12 07:57 | PCM.PN.OB ---
Subjective: Doing well. No SOB, CP. Normal lochia. Voiding, amubulating. - Physical Exam General: Alert, Oriented x3 Abdomen: Soft, Non Tender, - - FF below U Vital Signs Temp Pulse Resp BP Pulse Ox 98.9 F 90 18 125/73 H 98 01/12/18 04:00 01/12/18 04:00 01/12/18 04:00 01/12/18 04:00 01/12/18 04:00 Oxygen Delivery Method Room Air Weight: 188 lb Body Mass Index (BMI) 34.4 Intake and Output for Last 24 Hours 01/10/18 01/11/18 01/12/18 23:59 23:59 23:59 Intake Total 2190 / 2190 3336 / 3336 Output Total 500 / 500 1350 / 1350 Balance 1690 / 1690 1985 / 1985 Medical Necessity - Tobacco Use Smoking Status: Former smoker Assessment/Plan VAVD PPD #1: routine care, home today. Rubella nonimmune. Plans IUD 6 wk PP visit.
--- NOTE | 2018-01-12 08:00 | PCM.DCVAG ---
Additional Instructions: If you experience any of the following, contact your healthcare provider. Bleeding that soaks a pad every hour for 2 hours Fever 100.4 or higher Unrelieved incision or abdominal pain Swelling, redness, discharge or bleeding from your incision or episiotomy site Your incision begins to separate Problems urinating (including inability to urinate or burning while urinating). Visual changes Severe headache Flu-like symptoms Pain or redness in one of both of your breasts Pain, warmth, tenderness or swelling in your legs, especially the calf area Frequent nausea and vomiting Symptoms of depression or anxiety If you experience any of the following, call 911 or go to the nearest Emergency Room. Chest pain Problems breathing Seizure activity Partial or complete paralysis of a body part, slurred speech, weakness or drooping of the face, or a sudden inability to walk or hold your balance Allergies/Adverse Reactions: Allergies No Known Allergies Allergy (Verified 01/10/18 09:06) Medications to take at Discharge Pnv No.95/Ferrous Fum/Folic AC [ Multivitamin Tablet] 1 tab PO DAILY 07/16/17 Ondansetron [Zofran Odt] 4 mg PO Q8H PRN PRN 12/08/17 proMETHazine tablet [Phenergan] 12.5 mg PO Q6H PRN PRN #60 tab 12/09/17 Blood Pressure Test Kit [Blood Pressure Monitor] 1 x .ROUTE .MEDSUPPLY 01/06/18 Primary Care Physician: Care Physician,No Primary [Primary Care Provider] -
--- NOTE | 2018-01-12 08:01 | DCINST_ITS ---
Additional Instructions: If you experience any of the following, contact your healthcare provider. * Bleeding that soaks a pad every hour for 2 hours * Fever 100.4 or higher * Unrelieved incision or abdominal pain * Swelling, redness, discharge or bleeding from your incision or episiotomy site * Your incision begins to separate * Problems urinating (including inability to urinate or burning while urinating) . * Visual changes * Severe headache * Flu-like symptoms * Pain or redness in one of both of your breasts * Pain, warmth, tenderness or swelling in your legs, especially the calf area * Frequent nausea and vomiting * Symptoms of depression or anxiety If you experience any of the following, call 911 or go to the nearest Emergency Room. * Chest pain * Problems breathing * Seizure activity * Partial or complete paralysis of a body part, slurred speech, weakness or drooping of the face, or a sudden inability to walk or hold your balance Allergies/Adverse Reactions: Allergies No Known Allergies Allergy (Verified 01/10/18 09:06) Medications to take at Discharge Pnv No.95/Ferrous Fum/Folic AC [ Multivitamin Tablet] 1 tab PO DAILY Ondansetron [Zofran Odt] 4 mg PO Q8H PRN PRN 12/08/17 proMETHazine tablet [Phenergan] 12.5 mg PO Q6H PRN PRN #60 tab 12/09/17 Blood Pressure Test Kit [Blood Pressure Monitor] 1 x .ROUTE .MEDSUPPLY 01/06/18 Primary Care Physician: Care Physician,No Primary [Primary Care Provider] -
[2018-01-12] MEDS: Naproxen 250 MG Tablet PO ×2 (08:11→16:02)
[2018-01-12] MEDS: Senna/Docusate Sodium 1 Tablet PO (08:11)
[2018-01-12] MEDS: Prenatal Vits Tablet 1 TABLET PO (12:32)
[2018-01-12 14:00] VITALS: BP 129/87; PULSE 87; RESP 18; TEMP 36.8; O2SAT 98
[2018-01-12 19:55] VITALS: BP 137/82; PULSE 91; RESP 18; TEMP 36.9; O2SAT 98
[2018-01-12] MEDS: Acetaminophen 500 MG Tablet 1000 MG PO (21:58)
[2018-01-13 01:45] VITALS: BP 122/81; PULSE 81; RESP 18; TEMP 36.9; O2SAT 96
[2018-01-13] MEDS: Naproxen 250 MG Tablet PO (05:51)
--- NOTE | 2018-01-13 07:50 | PCM.PN.OB ---
Subjective: Doing well. No SOB, CP. Home today. - Physical Exam General: Alert, Oriented x3 Abdomen: Soft, Non Tender, - - FF below U Vital Signs Temp Pulse Resp BP Pulse Ox 98.4 F 81 18 122/81 H 96 01/13/18 01:45 01/13/18 01:45 01/13/18 01:45 01/13/18 01:45 01/13/18 01:45 Oxygen Delivery Method Room Air Weight: 188 lb Body Mass Index (BMI) 34.4 Intake and Output for Last 24 Hours 01/11/18 01/12/18 01/13/18 23:59 23:59 23:59 Intake Total 3336 / 3336 Output Total 1350 / 1350 Balance 1985 / 1985 Medical Necessity - Tobacco Use Smoking Status: Former smoker Assessment/Plan PPD #2 Routine care. Home today.
[2018-01-13] MEDS: Acetaminophen 500 MG Tablet 1000 MG PO (09:16)
[2018-01-13 09:20] VITALS: BP 116/77; PULSE 93; RESP 24; TEMP 36.9; O2SAT 97
[2018-01-13] MEDS: Prenatal Vits Tablet 1 TABLET PO (12:22)
[2018-01-13] MEDS: Senna/Docusate Sodium 1 Tablet PO (12:22)
--- NOTE | 2018-01-13 13:00 | NURSING ---
at 1210, father of baby comes out of pt's room and asks what's the hold up. this RN attempted to explain and this person closed the pt's room door on this RN before explaination was finished.
== END 2018-01-13 12:50 | disposition home or self-care (01) | DRG 372 ==
PROVIDERS: Admitting Provider Obstetrics & Gynecology; Visit Provider Obstetrics & Gynecology
DX: O75.81 Maternal exhaustion complicating labor and delivery (principal); O14.04 Mild to moderate pre-eclampsia, complicating childbirth; O70.1 Second degree perineal laceration during delivery; O69.81X0 Labor and delivery complicated by cord around neck, without compression, not applicable or unspecified; O36.63X0 Maternal care for excessive fetal growth, third trimester, not applicable or unspecified; Z3A.37 37 weeks gestation of pregnancy; Z37.0 Single live birth; Z22.330 Carrier of Group B streptococcus; Z87.891 Personal history of nicotine dependence
CPT/HCPCS: 59025; 59050; 85027; 86850; 86900; 99218; J7050; J7120; A4216; G0378; J2405

== ENCOUNTER → 2018-03-03 08:50 | Outpatient (CLI) | payer MEDICAID, SELFPAY ==
--- NOTE | 2018-03-03 08:53 | US_ITS ---
STUDY: ULTRASOUND BREAST - RIGHT REASON FOR EXAM: Female, 27 years old. Palpable lump in the right breast. TECHNIQUE: Axial and longitudinal images of the RIGHT breast were performed with a high resolution ultrasound transducer. COMPARISON: Comparison is made with prior mammogram dated March 03, 2018. FINDINGS: RIGHT Breast: There is a 3.6 cm x 4.7 cm x 2.8 cm cyst with low-level echoes along the dependent portion at the 3:00 position breast at 2 cm from nipple. This may represent an hemorrhagic cyst. A follow-up sonogram in 3 months is recommended. US/Breast Complete Unilateral IMPRESSION: The palpable abnormality corresponds a 3.6 cm x 4.7 signed by 2.8 cm cyst with low-level echoes along its dependent portion. An hemorrhagic cyst should be ruled out. A repeat sonogram in 3 months is recommended. Recommended. ASSESSMENT CATEGORY: BIRADS Category 3: Probably Benign - Short-Interval Follow-up Suggested. A letter regarding these results will be sent to the patient by the facility within 30 days. Electronically Signed: Yordan Cox MD at 11:07 EDT Tel [phone], Service support ,
--- NOTE | 2018-03-03 08:53 | BI_ITS ---
MAMMOGRAPHY - BILATERAL DIAGNOSTIC REASON FOR EXAM: Female, 27 years old. Left breast lump. The patient gave 6 weeks prior to the examination. PERTINENT HISTORY: TECHNIQUE: Digital bilateral breast lul (3D mammographic acquisition) in the CC and MLO projections. 2-D mediolateral oblique (MLO) and craniocaudad (CC) views of both breasts were obtained. CAD: Full Field Digital Mammography with Computer Added Detection was performed. COMPARISON: None. Baseline examination. FINDINGS: Breast Composition: The breasts are extremely dense, which lowers the sensitivity of mammography. The palpable abnormality corresponds to a 3.8 cm x 3.2 cm nodular density correlation with ultrasound is recommended. No other significant abnormalities are identified. BI/DIAG MAMM W/CAD, BILAT IMPRESSION: The palpable abnormality corresponds to a 3.8 cm x 3.2 cm nodular density. Correlation with ultrasound is recommended for further evaluation. ASSESSMENT CATEGORY: BIRADS Category 0: Incomplete. Need additional imaging evaluation. A letter regarding these results will be sent to the patient by the facility within 30 days. Approximately 10% of breast cancers are not detected by mammography. A normal mammogram should not delay biopsy of a clinically suspicious abnormality. Electronically Signed: Yordan Cox MD at 11:31 EDT Tel [phone], Service support ,
== END ==
PROVIDERS: Visit Provider Obstetrics & Gynecology
DX: N63.20 Unspecified lump in the left breast, unspecified quadrant (principal)
CPT/HCPCS: 76641; 77062; 77066; G0279

== ENCOUNTER → 2021-03-27 17:19 | Outpatient (CLI) | payer MEDICAID, SELFPAY ==
[2021-03-27 14:12] VITALS: BMI 31.1
[2021-03-27 18:09] LABS: Amphetamine Urine VISTA NEGATIVE (<1000 ng/mL); Barbiturate Urine VISTA NEGATIVE (< 200 ng/mL); Benzodiazepine Urine VISTA NEGATIVE (< 200 ng/mL); Cocaine Urine VISTA NEGATIVE (< 300 ng/mL); Ecstacy Urine VISTA NEGATIVE (< 500 ng/mL); Methadone Urine VISTA NEGATIVE (< 300 ng/mL); PCP Urine VISTA NEGATIVE (< 25 ng/mL); THC Urine VISTA NEGATIVE (< 50 ng/mL); Vista UDS pH Range 7
[2021-03-31 04:06] LABS: Chlamydia By Nucleic Acid AMP Negative (Negative)
[2021-03-31 12:02] LABS: Gonococcus By Nucleic Acid AMP Negative (Negative)
[2021-04-01 13:40] LABS: HPV APTIMA, High Risk Negative (Negative)
== END ==
PROVIDERS: Visit Provider Obstetrics & Gynecology
DX: Z12.4 Encounter for screening for malignant neoplasm of cervix (principal); Z34.90 Encounter for supervision of normal pregnancy, unspecified, unspecified trimester
CPT/HCPCS: 80307; 87086; 87088; 87491; 87591; 87624; 88175; G0145

== ENCOUNTER → 2021-03-28 08:58 | Outpatient (CLI) | payer MEDICAID, SELFPAY ==
[2021-03-27 14:12] VITALS: BMI 31.1
[2021-03-28 10:06] LABS: NATERA MAILED SPECIMEN
[2021-03-28 10:21] LABS: Absolute Lymphocyte Count 1.82 X10^3/uL (0.83-4.51); Absolute Neutrophil Count 8.1 X10^3/uL (2.0-7.7); Basophil# 0.02 X10^3/uL; Basophil% 0.2 % (0-1); Eosinophil# 0.02 X10^3/uL; Eosinophils% 0.2 % (0-5); Hematocrit 36.4 % (37-47); Lymphocyte # 1.82 X10^3/ul (0.83-4.51); Lymphocyte % 17.2 % (19-41); Mean Corpuscular Hgb 28.4 pg (27.0-32.0); Mean Corpuscular Volume 86.3 fL (81-99); Mean Platelet Vol. 10.3 fl (6.2-12.0); Monocyte# 0.59 X10^3/uL; Monocyte% 5.6 % (0-10); NRBC Flagged by Analyzer 0 % (0-5); Neutrophil # 8.12 X10^3/uL (2.7-7.7); Neutrophil % 76.5 % (47-70); Platelet Count 225 K/mm3 (150-450); RBC Distribution Width CV 13.5 % (11.6-14.6); RBC Distribution Width SD 41.6 fl (35.1-43.9); Red Blood Count 4.22 M/mm3 (4.2-5.4); White Blood Count 10.6 K/mm3 (4.4-11.0)
[2021-03-28 10:37] LABS: Glucose Challenge Gest 1H 50g 115 mg/dL (70-140)
[2021-03-28 11:21] LABS: HIV - WCH Non-Reactive (Nonreactive); Hepatitis B Surface Antigen Non-Reactive (Nonreactive); Hepatitis C Antibody Non-Reactive (Nonreactive); Rubella IgG Reactive (Nonreactive); Syphilis Antibodies Non-reactive
== END ==
PROVIDERS: Visit Provider Obstetrics & Gynecology
DX: Z34.81 Encounter for supervision of other normal pregnancy, first trimester (principal); Z31.430 Encounter of female for testing for genetic disease carrier status for procreative management
CPT/HCPCS: 36415; 82950; 85025; 86703; 86762; 86780; 86803; 86850; 86900; 86901; 87340

== ENCOUNTER → 2021-04-04 12:27 | Outpatient (CLI) | payer MEDICAID, SELFPAY ==
[2021-03-27 14:12] VITALS: BMI 31.1
[2021-04-04 12:34] VITALS: BP 130/76; PULSE 104; RESP 16; TEMP 35.5; O2SAT 96; BMI 37.4
[2021-04-04] MEDS: Dextrose 5%-Lactated Ringers 1,000 ML 1000 ML IV (12:49)
[2021-04-04] MEDS: Ondansetron 4 MG/2 ML Vial IV (12:53)
[2021-04-04 14:02] VITALS: BP 123/76; PULSE 88; RESP 16; O2SAT 99
== END ==
PROVIDERS: Referring Provider Obstetrics & Gynecology; Visit Provider Obstetrics & Gynecology
DX: E86.0 Dehydration (principal)
CPT/HCPCS: 96361; 96374; A4216; J2405

== ENCOUNTER → 2021-05-20 11:02 | Outpatient (CLI) | payer MEDICAID, SELFPAY ==
[2021-05-20 11:28] LABS: Protein:Creat Ratio 323 mg/g CRE (0-200)
== END ==
PROVIDERS: Referring Provider Nurse Practitioner Women's Health; Visit Provider Nurse Practitioner Women's Health
DX: Z87.59 Personal history of other complications of pregnancy, childbirth and the puerperium (principal)
CPT/HCPCS: 82570; 84156

== ENCOUNTER → 2021-05-20 13:51 | Outpatient (CLI) | payer MEDICAID, SELFPAY ==
[2021-05-20 11:48] LABS: Absolute Lymphocyte Count 1.74 X10^3/uL (0.83-4.51); Basophil# 0.01 X10^3/uL; Basophil% 0.1 % (0-1); Eosinophil# 0.02 X10^3/uL; Eosinophils% 0.2 % (0-5); Hematocrit 34.2 % (37-47); Hemoglobin 11.3 g/dL (12.0-15.0); Lymphocyte # 1.74 X10^3/ul (0.83-4.51); Lymphocyte % 16.8 % (19-41); Mean Corpuscular Hgb 29.1 pg (27.0-32.0); Mean Corpuscular Volume 88.1 fL (81-99); Mean Platelet Vol. 10.9 fl (6.2-12.0); Monocyte# 0.54 X10^3/uL; Monocyte% 5.2 % (0-10); NRBC Flagged by Analyzer 0 % (0-5); Neutrophil # 8.01 X10^3/uL (2.7-7.7); Neutrophil % 77.3 % (47-70); Platelet Count 195 K/mm3 (150-450); RBC Distribution Width CV 13.8 % (11.6-14.6); Red Blood Count 3.88 M/mm3 (4.2-5.4); White Blood Count 10.4 K/mm3 (4.4-11.0)
[2021-05-20 12:13] LABS: ALB/GLOB Ratio 0.6 RATIO (0.9-2.4); AST(SGOT) 21 U/L (15-37); Alanine Aminotransfer ALT/SGPT 41 U/L (13-56); Albumin, Serum 2.6 g/dL (3.2-5.0); Alkaline Phosphatase 66 U/L (45-117); Anion Gap 6 (5-15); BUN 10 mg/dL (7-18); BUN/Creat Ratio 19.5 RATIO (10-20); Calcium,Total 8.9 mg/dL (8.5-10.1); Chloride 106 mmol/L (98-107); Creatinine, Serum 0.51 mg/dL (0.55-1.02); EST Glomerular Filtration Rate 149 mL/min (>60); Est Glom Filt Rate - Afr Amer 180 mL/min (>60); Globulin 4.6 g/dL (2.2-4.2); Glucose 82 mg/dL (74-106); Potassium 3.9 mmol/L (3.5-5.1); Protein, Total 7.2 g/dL (6.4-8.2); Sodium Level 136 mmol/L (136-145)
--- NOTE | 2021-05-20 13:53 | US_ITS ---
STUDY: SECOND AND THIRD TRIMESTER OBSTETRICAL ULTRASOUND REASON FOR EXAM: Female, 30 years old anatomy scan LMP: 01/10/2021 TECHNIQUE: Transabdominal and Transvaginal TECHNICAL QUALITY: Adequate. PRIOR ULTRASOUND: None. FINDINGS: There is a single intrauterine fetus. The fetus is in a cephalic presentation. There is demonstrated cardiac activity with a heart rate of 135 bpm. There is a normal amniotic fluid volume. The largest amniotic fluid pocket measures 3.4 cm. The amniotic fluid index (MENA) is within normal limits. The placenta is anterior in location and is not low lying. There are Grade 0 placental changes. The cervix measures 3.3 cm in length. The bilateral adnexal regions are normal. BIOMETRY: BPD: 4.42 cm: 19 weeks, 2 days HC: 16.22 cm: 18 weeks, 6 days AC: 13.6 cm: 19 weeks, 0 days FL: 2.73 cm: 18 weeks, 2 days CI: 79% FL/BPD: 62% FL/HC: FL/AC: 20% HC/AC: 1.19 age by current US: 18 weeks, 6 days. CRESCENCIO by current US: 10/15/2021. Estimated weight: 259 grams, +/- 39 grams, 59 %. Age by LMP: 18 weeks, 4 days. CRESCENCIO by LMP: 10/17/2021. ANATOMY: Gender: Male Cranium: Normal lateral ventricles. Normal choroid plexus. Normal cerebellum. Normal cisterna magna. Normal face, nose and lips. Chest: Normal 4-chamber heart. Abdomen/Pelvis: Normal diaphragm. Normal stomach. Normal abdominal wall. Normal cord insertion. Normal 3 vessel cord. Normal kidneys. Normal bladder. Spine: Normal cervical spine. Normal thoracic spine. Normal lumbar spine. Normal sacrum. Extremities: Normal bilateral upper extremities. Normal bilateral lower extremities. IMPRESSION: Single live intrauterine gestation with a mean gestational age of 18 weeks and 6 days. Electronically Signed: Yordan Cox MD at 12:33 EDT , Service support , STUDY: FIRST TRIMESTER OBSTETRICAL ULTRASOUND REASON FOR EXAM: Female, 30 years old . Cervical length measurement. LMP: 01/10/2021 TECHNIQUE: Transvaginal TECHNICAL QUALITY: Adequate. PRIOR ULTRASOUND: None. FINDINGS: Transvaginal examination was performed for cervical length measurement. The cervical length measures 3.3 cm. US/OB Anatomy Scan IMPRESSION: Cervical length measures 3.3 cm. Electronically Signed: Yordan Cox MD at 12:34 EDT , Service support ,
== END ==
PROVIDERS: Nurse Practitioner Women's Health; Referring Provider Obstetrics & Gynecology; Visit Provider Obstetrics & Gynecology
DX: O09.90 Supervision of high risk pregnancy, unspecified, unspecified trimester (principal); Z3A.15 15 weeks gestation of pregnancy; Z87.59 Personal history of other complications of pregnancy, childbirth and the puerperium
CPT/HCPCS: 36415; 76805; 76817; 80053; 82570; 84156; 85025

== ENCOUNTER → 2021-08-08 09:32 | Outpatient (CLI) | payer MEDICAID, SELFPAY ==
[2021-08-08 10:39] LABS: Absolute Lymphocyte Count 1.21 X10^3/uL (0.83-4.51); Absolute Neutrophil Count 6.1 X10^3/uL (2.0-7.7); Basophil# 0.02 X10^3/uL; Basophil% 0.2 % (0-1); Eosinophil# 0.02 X10^3/uL; Eosinophils% 0.2 % (0-5); Hematocrit 30.5 % (37-47); Lymphocyte # 1.21 X10^3/ul (0.83-4.51); Lymphocyte % 14.6 % (19-41); Mean Corp Hgb Conc 32.8 g/dL (32-36); Mean Corpuscular Hgb 29.2 pg (27.0-32.0); Mean Corpuscular Volume 88.9 fL (81-99); Mean Platelet Vol. 10.5 fl (6.2-12.0); Monocyte# 0.87 X10^3/uL; Monocyte% 10.5 % (0-10); NRBC Flagged by Analyzer 0 % (0-5); Neutrophil # 6.06 X10^3/uL (2.7-7.7); Neutrophil % 73.3 % (47-70); Platelet Count 167 K/mm3 (150-450); RBC Distribution Width CV 14.5 % (11.6-14.6); RBC Distribution Width SD 46.4 fl (35.1-43.9); Red Blood Count 3.43 M/mm3 (4.2-5.4); White Blood Count 8.3 K/mm3 (4.4-11.0)
[2021-08-08 11:10] LABS: Glucose Challenge Gest 1H 50g 128 mg/dL (70-140)
== END ==
PROVIDERS: Obstetrics & Gynecology; Referring Provider Obstetrics & Gynecology; Visit Provider Obstetrics & Gynecology
DX: O09.90 Supervision of high risk pregnancy, unspecified, unspecified trimester (principal); Z3A.00 Weeks of gestation of pregnancy not specified
CPT/HCPCS: 36415; 82950; 85025

== ENCOUNTER → 2021-08-27 08:49 | Outpatient (CLI) | payer MEDICAID, SELFPAY ==
--- NOTE | 2021-08-27 08:51 | US_ITS ---
HISTORY: growth @ 32 weeks. TECHNIQUE: Transabdominal pelvic ultrasound was performed. # of images incl. paperwork: 64. COMPARISON: 05/20/2021 FINDINGS: INTRAUTERINE GESTATION(s): Single. PRESENTATION: Cephalic. PLACENTA: Anterior, grade 1. No placenta previa. CERVIX: Closed .3.7 cm in length. AMNIOTIC FLUID INDEX (MENA): 9.1 cm. HEART MOTION: 145 bpm. BIPARIETAL DIAMETER: 8.3 cm, 33 weeks 3 days. 66 %ile. HEAD CIRCUMFERENCE: 30.5 cm, 33 weeks 6 days. 85 %ile. ABDOMINAL CIRCUMFERENCE: 29.5 cm, 33 weeks 3 days. 72 %ile. FEMUR LENGTH: 6.2 cm, 32 weeks 2 days. 27 %ile. ESTIMATED WEIGHT: 2149 g, corresponding to 57th percentile. ESTIMATED GESTATIONAL AGE: 33 weeks 1 day. ESTIMATED DUE DATE (CRESCENCIO): 10/14/2021. US/OB Limited With Biometrics IMPRESSION: Single living intrauterine with an estimated gestational age of 33 weeks 1 day. at 0954 Reported and signed by: Niesha Camacho MD Electronically Signed: Niesha Camacho MD at 9:52 EST Tel , Service support ,
== END ==
PROVIDERS: Referring Provider Nurse Practitioner Women's Health; Visit Provider Nurse Practitioner Women's Health
DX: O10.919 Unspecified pre-existing hypertension complicating pregnancy, unspecified trimester (principal); Z87.59 Personal history of other complications of pregnancy, childbirth and the puerperium
CPT/HCPCS: 76816

== ENCOUNTER 2021-09-10 13:05 | Inpatient (IN) | payer MEDICAID, SELFPAY ==
[2021-09-10] VITALS (46 sets, daily range): BP systolic 112–183; BP diastolic 63–133; PULSE 84–180; TEMP 36.6–37.8; O2SAT 81–100; BMI 35.3
[2021-09-10 10:59] LABS: Protein:Creat Ratio 971 mg/g CRE (0-200)
[2021-09-10 11:52] LABS: Absolute Lymphocyte Count 1.52 X10^3/uL (0.83-4.51); Absolute Neutrophil Count 6.1 X10^3/uL (2.0-7.7); Basophil# 0.02 X10^3/uL; Basophil% 0.2 % (0-1); Eosinophil# 0.01 X10^3/uL; Eosinophils% 0.1 % (0-5); Hematocrit 31.7 % (37-47); Hemoglobin 10.1 g/dL (12.0-15.0); Lymphocyte # 1.52 X10^3/ul (0.83-4.51); Lymphocyte % 17.5 % (19-41); Mean Corp Hgb Conc 31.9 g/dL (32-36); Mean Corpuscular Hgb 27.3 pg (27.0-32.0); Mean Corpuscular Volume 85.7 fL (81-99); Mean Platelet Vol. 10.2 fl (6.2-12.0); Monocyte# 0.98 X10^3/uL; Monocyte% 11.3 % (0-10); NRBC Flagged by Analyzer 0 % (0-5); Neutrophil # 6.07 X10^3/uL (2.7-7.7); Neutrophil % 69.8 % (47-70); Platelet Count 300 K/mm3 (150-450); RBC Distribution Width CV 14.4 % (11.6-14.6); RBC Distribution Width SD 44.6 fl (35.1-43.9); White Blood Count 8.7 K/mm3 (4.4-11.0)
[2021-09-10 12:22] LABS: ALB/GLOB Ratio 0.4 RATIO (0.9-2.4); AST(SGOT) 76 U/L (15-37); Alanine Aminotransfer ALT/SGPT 71 U/L (13-56); Albumin, Serum 2.1 g/dL (3.2-5.0); Alkaline Phosphatase 170 U/L (45-117); Anion Gap 9 (5-15); BUN 8 mg/dL (7-18); BUN/Creat Ratio 13.7 RATIO (10-20); Calcium,Total 9.4 mg/dL (8.5-10.1); Chloride 104 mmol/L (98-107); Creatinine, Serum 0.58 mg/dL (0.55-1.02); EST Glomerular Filtration Rate 128 mL/min (>60); Est Glom Filt Rate - Afr Amer 155 mL/min (>60); Estimated Creatinine Clearance 111.15 ml/min; Globulin 5.7 g/dL (2.2-4.2); Glucose 99 mg/dL (74-106); Potassium 4.1 mmol/L (3.5-5.1); Protein, Total 7.8 g/dL (6.4-8.2); Sodium Level 137 mmol/L (136-145)
--- NOTE | 2021-09-10 12:52 | HP.PCM.OB_ITS ---
HPI - General General Date of Admission: 09/10/21 HPI Narrative JAMSHID RODRIGUEZ, is a 31 F who presents for IOL sec preeclampsia with severe features, elevated liver enzymes and urine protein. she has nl bps at present. Maternal Data Information CRESCENCIO Calculator Estimated Delivery Date Method Current WG Current Estimate 10/17/21 Ultrasound #1 34w 5d Other Estimates 10/31/21 LMP (Certain) 32w 5d PFSH PFS Medical History Anemia Chronic hypertension during Home Medications prenat.vits,eron,grq-[id number]-jndcp 1 tab PO DAILY 03/11/21 [History Last Taken 09/10/21 06:00] blood pressure test kit-medium #1 ea 05/20/21 [Rx Last Taken Unknown] aspirin [Aspirin Childrens] 81 mg PO DAILY 09/10/21 [History Last Taken 09/09/21 21:00] iron 50 tab PO PRN 09/10/21 [History Last Taken 09/09/21 21:00] nifedipine [Procardia XL] 30 mg PO DAILY 09/10/21 [History Last Taken 09/10/21 06:00] sertraline [Zoloft] 50 mg PO QDAY 09/10/21 [History Last Taken 09/09/21 21:00] Allergy/AdvReac Type Severity Reaction Status Date / Time No Known Allergies Allergy Verified 09/10/21 09:56 Family History Mother Diabetes Social History adopted: No household members: significant other and children number of children: 1 current occupational status: employed current occupation: [employer] pets and animals: No Smoking Status: Former smoker alcohol intake: never substance use type: marijuana and other details: No use since positive pregnan cy test caffeine: Yes what type of physical activity do you participate in: none seatbelt use: never do you feel safe at home: Yes additional social history: Alejandro- History 2 Elective abortions Hx Para 1 Spontaneous abortions Hx # Term Pregnancies Ectopic pregnancies Hx # Pregnancies Multiple births # of living children 1 Past Pregnancies Del. Date Name GA/Weeks Outcome Route Bth Weight Infant Gen Labor Lgth Anesthesia Del Locatn Provider FOB 01/11/18 Kin 37 live - full term vacuum Male isabela londono [facility] Delivery Date: 01/11/18 Mild pre eclampsia vacuum secondary to maternal discomfort Georgina Deutsch Visit Details Expected Delivery Route/Plan Labor Preferences- CB/BF classes: no labor support person: Alejandro labor intervention preferences: [] pain management options preferred: epidural cut cord/dad catch: yes : will try PP control planned: discussed/considering BS discussed possible routes of delivery and associated risks: [] special requests: [] Plans Covid status: getting vaccinated Flu vaccine: done 07/02/2021 Tdap vaccine: given Rhogam:na LARC form signed: yes Problem list reviewed and updated with the most current plan of care details and appropriate orders placed. Relevant counseling for the gestational age provided. Continue routine care and follow up unless otherwise noted in visit notes/problem list details OB Flowsheet Initial Weight: Not Recorded Date -?-?-?-?-?-?-?-?-?-?-?-?- EGA Weight BP Urine Prot -?-?-?-?-?-?-?-?-?-?-?-?- Glucose FHR FuHt Pres Dilation -?-?-?-?-?-?-?-?-?-?-?-?- Effaced St Visit Note 03/27/21 -?-?-?-?-?-?-?-?-?-?-?-?- 10w 6d -?-?-?-?-?-?-?-?-?-?-?-?- 171 -?-?-?-?-?-?-?-?-?-?-?-?- SM- CRL cons wit h LMP SM- CRL 3.5 cm cons with LMP SM- CRL 3.5 cm NOT cons with LMP 04/25/21 -?-?-?-?-?-?-?-?-?-?-?-?- 15w 0d 198 lb 130/88 Negative -?-?-?-?-?-?-?-?-?-?-?-?- Negative 150 -?-?-?-?-?-?-?-?-?-?-?-?- SM- no vb lof cr amping discussed anxiety and depression symptoms. 05/20/21 -?-?-?-?-?-?-?-?-?-?-?-?- 18w 4d 194 lb 142/88 2+ A* -?-?-?-?-?-?-?-?-?-?-?-?- Negative 145 -?-?-?-?-?-?-?-?-?-?-?-?- MH-sl headache. not drinking much water. Did not take tylenol. Denies vision changes. NO VB, LOF. Anatomy US today. Pre E labs pending. MH-sl headache. not drinkin g much water. Did not take tylenol. Denies vision changes. NO VB, LOF. Anatomy US today. Pre E labs pending. RTO 2 days for repeat BP plus home monitoring. GP aware 05/22/21 -?-?-?-?-?-?-?-?-?-?-?-?- 18w 6d 194 lb 140/90 -?-?-?-?-?-?-?-?-?-?-?-?- -?-?-?-?-?-?-?-?-?-?-?-?- 05/27/21 -?-?-?-?-?-?-?-?-?-?-?-?- 19w 4d 195 lb 110/80 110/80 -?-?-?-?-?-?-?-?-?-?-?-?- 140 -?-?-?-?--?-?-?-?-?-?-?-?- SM- bps WNL on p harrisardia doing well, had anatomy scan 07/02/21 -?-?-?-?-?-?-?-?-?-?-?-?- 24w 5d 201 lb 130/80 Negative -?-?-?-?-?-?-?-?-?-?-?--?- Negative 131 -?-?-?-?-?-?-?-?-?-?-?-?- JV- taking proca rdia bp normal today 130/80 (her baseline) flu shot today. continue bp meds and home monitoring. 07/04/21 -?-?-?-?-?-?-?-?-?-?-?-?- 25w 0d 200 lb 140/84 Negative -?-?-?-?-?-?-?-?-?-?-?-?- Negative 1 -?-?-?-?-?-?-?-?-?-?-?-?- 0 -4 JV- pt pre sents today for cramping. 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 cramping is common but usually resolves by morning. 07/30/21 -?-?-?-?-?-?-?-?-?-?-?-?- 28w 5d 202 lb 126/74 -?-?-?-?-?-?-?-?-?-?-?-?- 143 28 -?-?-?-?-?-?-?-?-?-?-?-?- -Good FM, no V B, LOF. Planning 28wk labs tomorrow. Start weekly NST and growth US q4 wk at 32 weeks-ordered 08/08/21 -?-?-?-?-?-?-?-?-?-?-?-?- 30w 0d 203 lb 96/70 Negative -?-?-?-?-?-?-?-?-?-?-?-?- Negative 140 30 -?-?-?-?-?-?-?-?-?-?-?-?- SM- no vb lof go od fm nor egular ctx 08/21/21 -?-?-?-?-?-?-?-?-?-?-?-?- 31w 6d 194 lb 4 oz 110/80 Nega tive -?-?-?-?-?-?-?-?--?-?-?-?- Negative 140 32 -?-?-?-?-?-?-?-?-?-?-?-?- JV- nst reactive . No lof, vaginal bleeding, or dec fm. 08/27/21 -?-?-?-?-?-?-?-?-?-?-?-?- 32w 5d 197 lb 122/72 Negative -?-?-?-?-?-?-?-?-?-?-?-?- Negative 130 -?-?-?-?-?-?-?-?-?-?-?-?- MH-Reactive NST only 09/03/21 -?-?-?-?-?-?-?-?-?-?-?-?- 33w 5d 195 lb -?-?-?-?-?-?-?-?-?-?-?-?- 130 -?-?-?-?-?-?-?-?-?-?-?-?- SM- no vb lof go od fm no reuglar ctx nst reactive 09/10/21 -?-?-?-?-?-?-?-?-?-?-?-?- 34w 5d 195 lb 6 oz 112/80 2+ -?-?-?-?-?-?-?-?-?-?-?-?- Negative 150 -?-?-?-?-?-?-?-?-?-?-?-?- MH-NST only reac tive. Pre E labs. 09/10/21 -?-?-?-?-?-?-?-?-?-?-?-?- 34w 5d 193 lb 5.526 oz 120/ 79 130/83 120/77 135/88 142/88 132/90 122/81 130/75 132/75 142/86 134/78 128/81 141/78 171/109 164/78 145/80 132/84 126/72 129/70 124/84 120/79 112/63 114/65 183/133 -?-?-?-?-?-?-?-?-?-?-?-?- -?-?-?-?-?-?-?-?-?-?--?-?- NST FHR Rate Baby A Baseline: 130 Variability:: Moderate Accelerations:: 15 x 15 Decelerations:: None NST Reactive:: Yes FHR Category:: Category I Uterine Activity:: irregular ROS Constitutional Constitutional: Reports systems reviewed and no addt'l complaints, except as documented Eyes Eyes: Denies change in vision ENT HEENT: Reports systems reviewed and no addt'l complaints, except as documented; Denies headache(s) Cardiovascular Cardiovascular: Reports systems reviewed and no addt'l complaints, except as documented; Denies chest pain or dyspnea Respiratory/Chest Respiratory/Chest: Reports systems reviewed and no addt'l complaints, except as documented Gastrointestinal Gastrointestinal: Reports systems reviewed and no addt'l complaints, except as documented; Denies abdominal pain Genitourinary Genitourinary: Reports systems reviewed and no addt'l complaints, except as documented, contractions Details: present (irregular) and movement Details: present; Denies dysuria or genital lesions Musculoskeletal Musculoskeletal: Reports systems reviewed and no addt'l complaints, except as documented Neurologic Neurologic: Reports systems reviewed and no addt'l complaints, except as documented Endocrine Endocrinology: Reports systems reviewed and no addt'l complaints, except as documented Vital Signs Vital Signs Vital Signs: 09/10/21 12:09 09/10/21 12:24 09/10/21 12:39 Temperature 97.8 F Temperature Source Temporal Pulse Rate 101 H 93 97 Blood Pressure 120/79 130/83 H 120/77 BP Systolic 120 130 120 BP Diastolic 79 83 77 Weight Weight: 193 lb 5.526 oz Body Mass Index (BMI) 35.3 Physical Exam Const alert, oriented x3, no apparent distress and healthy appearing HEENT normocephalic and moist oral mucous membranes Head and Scalp: atraumatic Neck full ROM, no lymphadenopathy, supple and thyroid normal General: trachea midline Lymph Lymphatic: no lymphadenopathy noted Chest inspection of chest normal Resp normal respiratory effort Cardio regular rate GI normal to inspection, nondistended, normoactive bowel sounds, soft to palpation and non-tender Inspection: gravid external exam normal Manual OB Exam: estimated gestational size appropriate, presentation cephalic, dilated, effaced and station Extremity normal to inspection General Extremity: Negative for edema Skin no rashes or lesions noted Neuro no focal motor deficits and deep tendon reflexes 2+ bilaterally Motor Exam: strength 5/5 throughout and clonus absent Psych mental status grossly normal Labs Labs Labs: Blood Type A POSITIVE Antibody Screen NEGATIVE Hct 30.0 % (37-47) L Hgb 9.9 g/dL (12.0-15.0) L Obstetrics US Syphilis Total Ab Non-reactive Rubella IgG Antibody Reactive (Nonreactive) Hep Bs Antigen Non-Reactive (Nonreactive) Neisseria gonorrhoeae DNA (JONY) Negative (Negative) HIV 1&2 Antibody Non-Reactive (Nonreactive) Glucose 1 Hr 50 gm 128 mg/dL (70-140) Group B Strep DNA POSITIVE (Negative) H Rhogam given: No Assessment & Plan (1) Pre-eclampsia superimposed on chronic hypertension: COMMENT: elevated liver enzymes recommend delivery due to severe features (2) Anemia: COMMENT: iron supplement (3) History of tetanus, diphtheria, and acellular pertussis booster vaccination (Tdap): COMMENT: 07/30/21 (4) Chronic hypertension affecting : COMMENT: Elevated BPs starting at 18w. Procardia XL 30mg started 05/23. start nst's 32 weeks (5) Proteinuria affecting : QUALIFIERS: Trimester: second trimester Qualified Code(s): O12.12 - Gestational proteinuria, second trimester COMMENT: baseline 323 in early second trimester (6) Obesity affecting : QUALIFIERS: Trimester: second trimester Qualified Code(s): O99.212 - Obesity complicating , second trimester COMMENT: 1 tm GCT. encouraged healthy weight gain. (7) History of pre-eclampsia: COMMENT: Mild. induced at 37 wk, VAVD (8) Supervision of high risk , antepartum: COMMENT: PRR CRESCENCIO: 10/31/21 boy PC:Kin BF:[place]) (9) : QUALIFIERS: Weeks of gestation: 33 weeks Qualified Code(s): Z3A.33 - 33 weeks gestation of COMMENT: genetic- low risk male and carrier screen; NL anatomy, 08/27 growth nl PLAN: pit IOL epi PRN magnesium sulfate if worsening labs or elevated bps
[2021-09-10] MEDS: 0.9% Saline Lock 10 ML Syringe IV ×2 (13:30→23:16)
[2021-09-10] MEDS: miSOPROStol 25 MCG TABLET VAGINAL (13:49)
[2021-09-10] MEDS: Betamethasone/Betamethasone 30 MG/5 ML Vial 12 MG IM (13:58)
[2021-09-10] MEDS: Lactated Ringers 1,000 ML 50 ML IV (16:18)
[2021-09-10] MEDS: Oxytocin 30 units/NS 500 ml 30 UNITS/500 ML IV.SOLN IV (16:18)
[2021-09-10 17:57] LABS: Absolute Lymphocyte Count 1.16 X10^3/uL (0.83-4.51); Absolute Neutrophil Count 7.8 X10^3/uL (2.0-7.7); Basophil# 0.02 X10^3/uL; Basophil% 0.2 % (0-1); Hemoglobin 9.9 g/dL (12.0-15.0); Lymphocyte # 1.16 X10^3/ul (0.83-4.51); Lymphocyte % 12.4 % (19-41); Mean Corpuscular Hgb 28.2 pg (27.0-32.0); Mean Corpuscular Volume 85.5 fL (81-99); Mean Platelet Vol. 10.1 fl (6.2-12.0); Monocyte# 0.27 X10^3/uL; Monocyte% 2.9 % (0-10); NRBC Flagged by Analyzer 0 % (0-5); Neutrophil % 83.5 % (47-70); Platelet Count 277 K/mm3 (150-450); RBC Distribution Width CV 14.4 % (11.6-14.6); RBC Distribution Width SD 44.1 fl (35.1-43.9); Red Blood Count 3.51 M/mm3 (4.2-5.4); White Blood Count 9.3 K/mm3 (4.4-11.0)
[2021-09-10] MEDS: Lactated Ringers 500 ML 999 ML IV (18:10)
[2021-09-10 18:14] LABS: ALB/GLOB Ratio 0.4 RATIO (0.9-2.4); AST(SGOT) 82 U/L (15-37); Alanine Aminotransfer ALT/SGPT 73 U/L (13-56); Albumin, Serum 2.1 g/dL (3.2-5.0); Alkaline Phosphatase 174 U/L (45-117); Anion Gap 11 (5-15); BUN 8 mg/dL (7-18); BUN/Creat Ratio 14.9 RATIO (10-20); Calcium,Total 9.5 mg/dL (8.5-10.1); Chloride 104 mmol/L (98-107); Creatinine, Serum 0.54 mg/dL (0.55-1.02); EST Glomerular Filtration Rate 141 mL/min (>60); Est Glom Filt Rate - Afr Amer 171 mL/min (>60); Estimated Creatinine Clearance 119.39 ml/min; Globulin 5.6 g/dL (2.2-4.2); Glucose 126 mg/dL (74-106); Potassium 4.1 mmol/L (3.5-5.1); Protein, Total 7.7 g/dL (6.4-8.2); Sodium Level 137 mmol/L (136-145)
[2021-09-10] MEDS: fentaNYL-bupivacaine (epidural) 100 ML BAG EPIDURAL ×2 (19:11→23:22)
[2021-09-10] MEDS: Amnioinfusion- 0.9% NS 1,000 ML IV.SOLN. 1000 ML INTRA-UTER (19:11)
[2021-09-10] MEDS: Lactated Ringers 1,000 ML 200 ML IV (22:37)
[2021-09-10] MEDS: Penicillin G 3,000,000 Units 50 ML 100 UNITS IV (22:53)
[2021-09-10] MEDS: Ondansetron 4 MG/2 ML Vial IV (23:16)
[2021-09-10] MEDS: Oxytocin 30 units/NS 500 ml 30 UNITS/500 ML IV.SOLN 334 UNITS IV (23:46)
--- NOTE | 2021-09-10 23:54 | EX.PCM.OBRPT ---
Assessment & Plan (1) Pre-eclampsia superimposed on chronic hypertension: COMMENT: elevated liver enzymes recommend delivery due to severe features (2) Anemia: COMMENT: iron supplement (3) History of tetanus, diphtheria, and acellular pertussis booster vaccination (Tdap): COMMENT: 07/30/21 (4) Chronic hypertension affecting : COMMENT: Elevated BPs starting at 18w. Procardia XL 30mg started 05/23. start nst's 32 weeks (5) : QUALIFIERS: Weeks of gestation: 33 weeks Qualified Code(s): Z3A.33 - 33 weeks gestation of COMMENT: genetic- low risk male and carrier screen; NL anatomy, 08/27 growth nl (6) Supervision of high risk , antepartum: COMMENT: PRR CRESCENCIO: 10/31/21 boy PC:Kin BF:Alejandro([place]) (7) History of pre-eclampsia: COMMENT: Mild. induced at 37 wk, VAVD (8) Obesity affecting : QUALIFIERS: Trimester: second trimester Qualified Code(s): O99.212 - Obesity complicating , second trimester COMMENT: 1 tm GCT. encouraged healthy weight gain. (9) Vaginal delivery: COMMENT: IOL preeclampsia with severe features elevated LFTs. SM boy [place] 34 Maternal Data Information CRESCENCIO Calculator Estimated Delivery Date Method Current WG Current Estimate 10/17/21 Ultrasound #1 34w 5d Other Estimates 10/31/21 LMP (Certain) 32w 5d Vaginal Delivery Operative Information Date of Procedure: 09/10/21 Pre-Operative Diagnosis: IOL preeclampsia severe Post-Operative Diagnosis: same Surgery / Procedure Performed: Spontaneous Vaginal Delivery Type of Anesthesia: Epidural Special Medications: none Estimated Blood Loss: 100 Fluids Replaced: crystalloid Findings Description of Procedure: Patient began pushing and delivered the head in the NIRANJAN presentation. The head was delivered atraumatically . The anterior and posterior shoulders delivered without complication followed by the rest of the and the infant was placed on the maternal abdomen. Delayed cord clamping was employed for approximately 60 seconds. Cord was clamped and cut and gentle traction was applied to the cord and the placenta delivered spontaneously immediately following it was noted to be intact with three-vessel cord. The perineum and vagina were inspected and noted to have no laceration. EBL was 100 cc. Patient and tolerated delivery well. Presentation: NIRANJAN Amniotic Membrane Rupture Type: Artificial Amniotic Fluid Description: Clear Placental Delivery Description: Spontaneous Placenta Disposition: [facility] Cord Vessel Description: 3 Vessels Cord Entanglement: None Delayed Cord Clamping: Yes Post Vaginal Delivery Medications Given After Delivery: IV Pitocin Episiotomy Description: None Laceration: None Complication Complications: None Procedures Urinary/Genital [id number]: [id number] Vaginal Delivery+PP Care([facility])
--- NOTE | 2021-09-10 23:57 | DCINST_ITS ---
Discharge Instructions Diet Discharge Diet: No restrictions Activity Discharge Activity: Return to Normal Activity, May Not Drive (while taking narcotic pain medications.) and May Shower May resume sexual activity in: 4-6 weeks Dressing / Incision Call your doctor if your incision/area has: Continuous Slow Oozing, Sudden Increased Bleeding, Increased Pain/ Swelling, Increased Redness and Foul Smelling Discharge Follow Up Care Please Follow Up With: Brittni Caldwell MD When: Call [phone] to make an appointment with your doctor in 6 weeks. If you had elevated blood pressure or 4th degree laceration, you will need to be seen in 2 weeks. Test Results: Test results from this visit will be discussed in further detail at your follow-up appointment, if applicable. Discharge Plan Admission Admit Date/Time: 09/10/21 13:05 Attending Provider: Brittni Caldwell Primary Care Provider: Care Physician,No Primary Consulting Providers: Mary Ann Coburn [employer] Discharge Orders/Prescriptions Prescriptions: No Action prenat.vits,eron,[id number]-[id number]-[id number] Tablet 1 tab PO DAILY RF: 0 (DME) blood pressure test kit-medium Kit See Rx Instructions .ROUTE .MEDSUPPLY Qty: 1 RF: 0 nifedipine [Procardia XL] 30 mg tablet extended release 24hr 30 mg PO DAILY RF: 0 sertraline [Zoloft] 50 mg tablet 50 mg PO QDAY RF: 0 aspirin [Aspirin Childrens] 81 mg Tablet,Chewable 81 mg PO DAILY RF: 0 iron 50 mg iron Tablet 50 tab PO PRN (Reason: PT DESIRE) RF: 0 Referrals / Follow Up: Care Physician,No Primary [Primary Care Provider] - Disposition Disposition (needs filled in before D/C Order can be placed): Home, Self Care
[2021-09-11] VITALS (41 sets, daily range): BP systolic 110–131; BP diastolic 55–81; PULSE 75–133; RESP 16–18; TEMP 36.6–38.2; O2SAT 80–100
[2021-09-11] MEDS: Lactated Ringers 1,000 ML 999 ML IV (00:52)
[2021-09-11] MEDS: Acetaminophen 500 MG Tablet 1000 MG PO ×3 (00:56→20:02)
[2021-09-11 00:59] LABS: Absolute Neutrophil Count 10.8 X10^3/uL (2.0-7.7); Basophil# 0.02 X10^3/uL; Basophil% 0.2 % (0-1); Hematocrit 29.9 % (37-47); Hemoglobin 9.4 g/dL (12.0-15.0); Mean Corp Hgb Conc 31.4 g/dL (32-36); Mean Corpuscular Hgb 27.2 pg (27.0-32.0); Mean Corpuscular Volume 86.4 fL (81-99); Mean Platelet Vol. 10.1 fl (6.2-12.0); Monocyte# 0.55 X10^3/uL; Monocyte% 4.6 % (0-10); NRBC Flagged by Analyzer 0 % (0-5); Neutrophil % 89.4 % (47-70); POSITIVE DIFFERENTIAL YES; Platelet Count 285 K/mm3 (150-450); RBC Distribution Width CV 14.2 % (11.6-14.6); RBC Distribution Width SD 44.7 fl (35.1-43.9); Red Blood Count 3.46 M/mm3 (4.2-5.4); White Blood Count 12.1 K/mm3 (4.4-11.0)
[2021-09-11 01:22] LABS: ALB/GLOB Ratio 0.4 RATIO (0.9-2.4); AST(SGOT) 95 U/L (15-37); Alanine Aminotransfer ALT/SGPT 72 U/L (13-56); Alkaline Phosphatase 154 U/L (45-117); Anion Gap 11 (5-15); BUN 10 mg/dL (7-18); Calcium,Total 9.5 mg/dL (8.5-10.1); Chloride 104 mmol/L (98-107); Creatinine, Serum 0.71 mg/dL (0.55-1.02); EST Glomerular Filtration Rate 101 mL/min (>60); Est Glom Filt Rate - Afr Amer 123 mL/min (>60); Glucose 150 mg/dL (74-106); Potassium 4.1 mmol/L (3.5-5.1); Sodium Level 134 mmol/L (136-145)
[2021-09-11 01:44] LABS: Differential Indicated SCAN CRITERIA MET
--- NOTE | 2021-09-11 02:30 | NURSING ---
pumping supplies and education/demonstration regarding pumping setup, duration, cleanup and frequency. pt verbalizes understanding and pumped for twenty minutes.
--- NOTE | 2021-09-11 03:10 | NURSING ---
per Marek in lab, pt's CBC and BMP were done 09/11/202149 but were received incorrectly in computer. per Marek, unable to correct date in computer but verified labs in computer resulted at 09/10/202149 were done on 09/11/202149.
[2021-09-11] MEDS: 0.9% Saline Lock 10 ML Syringe IV (05:57)
--- NOTE | 2021-09-11 07:48 | PCM.PN.OB ---
Subjective Subjective Patient doing well without complaints. Tolerating PO. Ambulating and voiding without difficulty. Feeding well. Denies chest pain, shortness of breath, calf pain/swelling, fevers, chills, lightheadedness. Hx Pre E and BPs stable. Baby SCN and doing well. Objective Data Objective Data Vital Signs: Vital Signs Temp Pulse Resp BP Pulse Ox 98.4 F 103 H 18 114/62 97 09/11/21 05:45 09/11/21 05:45 09/11/21 05:45 09/11/21 05:45 09/11/21 05:45 Oxygen Delivery Method Room Air Weight: 193 lb 5.526 oz Body Mass Index (BMI) 35.3 Intake & Output: Intake and Output for Last 24 Hours 09/09/21 09/10/21 09/11/21 23:59 23:59 23:59 Intake Total 1635.96 / 1635.96 2100 / 2100 Output Total 500 / 500 Balance 1635.96 / 1635.96 1600 / 1600 Lab / Micro Data Result Diagrams: 09/10/21 17:45 09/10/21 17:45 Labs: Laboratory Results - last 24 hr 09/10/21 00:50: Sodium 134 L, Potassium 4.1, Chloride 104, Carbon Dioxide 19.0 L, Anion Gap 11, BUN 10, Creatinine 0.71, Estim Creat Clear Calc 90.80, Est GFR (MDRD) Af Amer 123, Est GFR (MDRD) Non-Af 101, BUN/Creatinine Ratio 14.0, Glucose 150 H, Calcium 9.5, Total Bilirubin 0.80, AST 95 H, ALT 72 H, Alkaline Phosphatase 154 H, Total Protein 7.0, Albumin 2.0 L, Globulin 5.0 H, Albumin/Globulin Ratio 0.4 L 09/10/21 00:50: WBC 12.1 H, RBC 3.46 L, Hgb 9.4 L, Hct 29.9 L, MCV 86.4, MCH 27.2, MCHC 31.4 L, RDW Std Deviation 44.7 H, RDW Coeff of Faraz 14.2, Plt Count 285, MPV 10.1, Immature Gran % (Auto) 0.800, Neut % (Auto) 89.4 H, Lymph % (Auto) 5.0 L, Sandoval % (Auto) 4.6, Eos % (Auto) 0.0, Baso % (Auto) 0.2, Absolute Neuts (auto) 10.8 H, Absolute Lymphs (auto) 0.60 L, Nucleated RBC % 0 09/10/21 10:39: U Random Total Protein 166.0 H, Urine Creatinine 171.00, Protein/Creatinin Ratio 971 H 09/10/21 10:51: WBC 8.7, RBC 3.70 L, Hgb 10.1 L, Hct 31.7 L, MCV 85.7, MCH 27.3, MCHC 31.9 L, RDW Std Deviation 44.6 H, RDW Coeff of Faraz 14.4, Plt Count 300, MPV 10.2, Immature Gran % (Auto) 1.100 H, Neut % (Auto) 69.8, Lymph % (Auto) 17.5 L, Sandoval % (Auto) 11.3 H, Eos % (Auto) 0.1, Baso % (Auto) 0.2, Absolute Neuts (auto) 6.1, Absolute Lymphs (auto) 1.52, Nucleated RBC % 0 09/10/21 10:51: Sodium 137, Potassium 4.1, Chloride 104, Carbon Dioxide 24.0, Anion Gap 9, BUN 8, Creatinine 0.58, Estim Creat Clear Calc 111.15, Est GFR (MDRD) Af Amer 155, Est GFR (MDRD) Non-Af 128, BUN/Creatinine Ratio 13.7, Glucose 99, Calcium 9.4, Total Bilirubin 0.50, AST 76 H, ALT 71 H, Alkaline Phosphatase 170 H, Total Protein 7.8, Albumin 2.1 L, Globulin 5.7 H, Albumin/Globulin Ratio 0.4 L 09/10/21 13:30: Blood Type A POSITIVE, Antibody Screen NEGATIVE 09/10/21 17:45: WBC 9.3, RBC 3.51 L, Hgb 9.9 L, Hct 30.0 L, MCV 85.5, MCH 28.2, MCHC 33.0, RDW Std Deviation 44.1 H, RDW Coeff of Faraz 14.4, Plt Count 277, MPV 10.1, Immature Gran % (Auto) 1.000 H, Neut % (Auto) 83.5 H, Lymph % (Auto) 12.4 L, Sandoval % (Auto) 2.9, Eos % (Auto) 0.0, Baso % (Auto) 0.2, Absolute Neuts (auto) 7.8 H, Absolute Lymphs (auto) 1.16, Nucleated RBC % 0 09/10/21 17:45: Sodium 137, Potassium 4.1, Chloride 104, Carbon Dioxide 22.0, Anion Gap 11, BUN 8, Creatinine 0.54 L, Estim Creat Clear Calc 119.39, Est GFR (MDRD) Af Amer 171, Est GFR (MDRD) Non-Af 141, BUN/Creatinine Ratio 14.9, Glucose 126 H, Calcium 9.5, Total Bilirubin 0.60, AST 82 H, ALT 73 H, Alkaline Phosphatase 174 H, Total Protein 7.7, Albumin 2.1 L, Globulin 5.6 H, Albumin/Globulin Ratio 0.4 L Micro: Microbiology 09/10/21 13:25 Nasal Secretion SARS-CoV-2 Antigen (Rapid) - Final Physical Exam Const alert and oriented x3 HEENT normocephalic Eyes PERRL Neck full ROM Resp normal respiratory effort GI soft to palpation GI Narrative: FF below U Assessment & Plan (1) Vaginal delivery: COMMENT: IOL preeclampsia with severe features elevated LFTs. SM boy [place] 34 (2) Pre-eclampsia superimposed on chronic hypertension: COMMENT: elevated liver enzymes recommend delivery due to severe features PLAN: s/p PPD # 1 1. routine post delivery care 2. breast feeding- support given 3. rh positive 4. rubella immune 5. BP stable.
[2021-09-11] MEDS: Sertraline 50 MG Tablet PO (12:33)
[2021-09-11] MEDS: Naproxen 500 MG Tablet PO (12:36)
[2021-09-12 01:00] VITALS: BP 102/64; PULSE 74; RESP 16; TEMP 36.9; O2SAT 96
[2021-09-12 08:00] VITALS: BP 110/67; PULSE 73; RESP 15; TEMP 36.8
[2021-09-12] MEDS: Sertraline 50 MG Tablet PO (13:36)
--- NOTE | 2021-09-12 13:36 | NURSING ---
zoloft 50 mg po given late. Sent pharm communication and called pharmacy twice regarding not having med on unit and needing med sent to unit.
[2021-09-12 13:38] VITALS: BP 110/65; PULSE 81; RESP 15; TEMP 36.6
--- NOTE | 2021-09-12 17:26 | PCM.PN.OB ---
Subjective Subjective Patient doing well without complaints. Tolerating PO. Ambulating and voiding without difficulty. feeding well. Denies chest pain, shortness of breath, calf pain/swelling, fevers, chills, lightheadedness. Objective Data Objective Data Vital Signs: Vital Signs Temp Pulse Resp BP Pulse Ox 97.8 F 81 15 110/65 96 09/12/21 13:38 09/12/21 13:38 09/12/21 13:38 09/12/21 13:38 09/12/21 01:00 Oxygen Delivery Method Room Air Weight: 193 lb 5.526 oz Body Mass Index (BMI) 35.3 Intake & Output: Intake and Output for Last 24 Hours 09/10/21 09/11/21 09/12/21 23:59 23:59 23:59 Intake Total 1635.96 / 1635.96 2100 / 2100 Output Total 500 / 500 Balance 1635.96 / 1635.96 1600 / 1600 Lab / Micro Data Result Diagrams: 09/10/21 17:45 09/10/21 17:45 Micro: Microbiology 09/10/21 13:25 Nasal Secretion SARS-CoV-2 Antigen (Rapid) - Final ROS Constitutional Constitutional: Reports systems reviewed and no addt'l complaints, except as documented Cardiovascular Cardiovascular: Reports systems reviewed and no addt'l complaints, except as documented Respiratory/Chest Respiratory/Chest: Reports systems reviewed and no addt'l complaints, except as documented Gastrointestinal Gastrointestinal: Reports systems reviewed and no addt'l complaints, except as documented Physical Exam Const alert, oriented x3 and no apparent distress HEENT Head and Scalp: atraumatic Resp normal respiratory effort GI soft to palpation and non-tender Bimanual Exam - Vag & Uterus: uterus non-tender Uterus Palpation: uterus fundus firm (below Umbilicus) Assessment & Plan (1) Pre-eclampsia superimposed on chronic hypertension: COMMENT: elevated liver enzymes recommend delivery due to severe features (2) Vaginal delivery: COMMENT: IOL preeclampsia with severe features elevated LFTs. SM boy [place] 34 (3) Chronic hypertension affecting : COMMENT: was on procardia in , none PLAN: s/p PPD # 2 1. routine post delivery care 2. breast feeding- support given 3. rh positive 4. rubella immune
== END 2021-09-12 18:00 | disposition home or self-care (01) | DRG 560 ==
LOC: WP 23:52 → WPOUT 09-12 16:47
PROVIDERS: Nurse Practitioner Women's Health; Admitting Provider Obstetrics & Gynecology; Referring Provider Obstetrics & Gynecology; Visit Provider Obstetrics & Gynecology
DX: O11.4 Pre-existing hypertension with pre-eclampsia, complicating childbirth (principal); Z37.0 Single live birth; O12.13 Gestational proteinuria, third trimester; D64.9 Anemia, unspecified; Z23 Encounter for immunization; Z87.891 Personal history of nicotine dependence; O99.02 Anemia complicating childbirth; Z3A.33 33 weeks gestation of pregnancy; O99.214 Obesity complicating childbirth; E66.9 Obesity, unspecified
CPT/HCPCS: 36415; 59025; 59050; 80053; 82570; 84156; 85025; 86850; 86900; 86901; 87426; 99218; J7030; J7120; A4216; G0378; J0702; J2405

== ENCOUNTER 2021-12-09 11:45 | Day surgery (SDC) | payer MEDICAID, SELFPAY ==
[2021-12-08 07:28] LABS: Hematocrit 32.5 % (37-47); Hemoglobin 10.4 g/dL (12.0-15.0); Mean Corpuscular Hgb 25.9 pg (27.0-32.0); Mean Platelet Vol. 9.1 fl (6.2-12.0); Platelet Count 245 K/mm3 (150-450); RBC Distribution Width CV 15.3 % (11.6-14.6); RBC Distribution Width SD 45.4 fl (35.1-43.9); Red Blood Count 4.01 M/mm3 (4.2-5.4); White Blood Count 7.7 K/mm3 (4.4-11.0)
--- NOTE | 2021-12-08 16:31 | HP.PCM_ITS ---
History and Physical Date of Admission: 12/09/21 Date of Service: 10/22/21 MR#:[id number]:[id number]: JAMSHID RODRIGUEZ [facility] #:[id number] Provider:Dr. Olga Colvin, DOAge/Sex: 31/F [facility] Vital Signs 10/22/21 13:25 Height 5 ft 2 in Weight: 188 lb 4 oz BMI 34.4 BP 130/82 H Intake Visit Reasons: 6 WK PP [employer] Supervisor Required: No Is patient in pain?: No Allergies No Known Allergies Allergy (Verified 10/22/21 13:24) Medications prenat.vits,eron,chy-nyei-sqdlo 1 tab PO DAILY 03/11/21 [History Confirmed 10/22/21] sertraline [Zoloft] 50 mg PO QDAY 09/10/21 [History Confirmed 10/22/21] : [facility] History Anemia Chronic hypertension during Family History Mother Diabetes Social History (Updated 10/22/21 @ 13:25 by Bibi Drake) adopted: No household members: significant other and children number of children: 2 current occupational status: employed current occupation: [employer] pets and animals: No Smoking Status: Former smoker alcohol intake: never substance use type: marijuana and other details: No use since positive test caffeine: Yes what type of physical activity do you participate in: none seatbelt use: never do you feel safe at home: Yes additional social history: Alejnadro- Pregancy History 2 Elective abortions Hx Para 2 Spontaneous abortions Hx # Term Pregnancies Ectopic pregnancies Hx # Pregnancies Multiple births # of living children 2 Past Pregnancies Del. Date Name GA/Weeks Outcome Route Bth Weight Gen Labor Lgth Anesthesia Del Locatn Provider FOB 01/11/18 Kin 37 live - full term vacuum Male epidural [facility] MICKIE 09/12/21 Vitor 34 live - 5lbs 3oz Male [facility] Marcanthony Delivery Date: 01/11/18 Mild pre eclampsia vacuum secondary to maternal discomfort Georgina Deutsch Delivery Date: 09/12/21 severe pre e IOL NilayBeryl Depression Screen PHQ-2/9 PHQ-2 Over the last 2 weeks, how often have you been bothered by any of the following problems? 1. Little interest or pleasure in doing things: not at all 2. Feeling down, depressed, or hopeless: not at all Total score: 0 Post HPI 6 WK PP: Details: JAMSHID RODRIGUEZ is a 31 year old who presents for her post visit. She is ready to schedule a bilateral salpingectomy keira. She is and has no complaints. Details: JAMSHID RODRIGUEZ is a 31 year old who presents for her post visit. ROS Const Reports system reviewed and no additional complaints, except as documented GI Reports system reviewed and no additional complaints, except as documented, Denies bloating, Denies constipation, Denies nausea and Denies vomiting Reports system reviewed and no additional complaints, except as documented, Denies abnormal vaginal bleeding, Denies pelvic pain, Denies sexual dysfunction, Denies urinary incontinence, Denies urinary hesitancy, Denies urinary urgency and Denies vaginal discharge Skin/Breast Reports system reviewed and no additional complaints, except as documented and Reports as per HPI Psych Reports as per HPI Exam Const General: cooperative, healthy appearing, comfortable and no acute distress [facility] Head: normal to inspection Neck Neck: normal visual inspection and no lymphadenopathy Thyroid: thyroid normal Chest Breast inspection: normal inspection of the breasts and normal inspection of the axillae Breast palpation: normal palpation of the breasts and normal palpation of the axillae Resp Effort & Inspection: normal respiratory effort GI Inspection: normal to inspection Palpation: soft, no hepatosplenomegaly and nontender General: bladder normal to palpation External Female Exam: normal external appearance and normal appearance of the urethra Urethra: normal appearance of the urethra Speculum Exam - Vagina: normal appearance of the vagina and normal vaginal discharge Speculum Exam - Cervix: normal appearance of the cervix Bimanual Exam- Vagina & Uterus: normal bimanual exam, uterine size normal, bladder normal to palpation, uterine shape normal and non-tender Bimanual Exam- Adnexa, other: normal adnexae and normal Pelvic Support: normal Skin General: no rashes or lesions noted Coding Level of Care Code Off vis,est,level 3 Diagnoses Pre-eclampsia superimposed on chronic hypertension O11.9 Chronic hypertension affecting O10.919 state Z39.2 Assessment and Plan Assessment and Plan (1) Pre-eclampsia superimposed on chronic hypertension: Status: Chronic Comment: elevated liver enzymes recommend delivery due to severe features (2) Chronic hypertension affecting : Status: Chronic Comment: was on procardia in , none (3) state: Plan - Dr. Olga Colvin DO: Cervical cancer screening: up to date Contraceptive plans: bilateral salpingectomy. Risks, benefits, alternatives discussed. Title 19 signed dated 07/30/2021 Complications: none Follow up for annual exams or sooner if indicated. After discussing the patient's diagnosis and treatment plan options, patient wishes to proceed with surgical management. I have discussed with the patient the risks, benefits, and alternatives of the procedure which include but are not limited to risks of anesthesia, bleeding, infection, possible damage to bowel, bladder, or surrounding vasculature which could lead to additional surgery to evaluate any complications. Patient agrees to procedure and wishes to proceed. ACOG/uptodate references given for additional information regarding procedure. UPDATE- I have seen the patient and performed any clinically relevant updates to the history and physical exam. Olga Colvin DO
[2021-12-09] VITALS (7 sets, daily range): BP systolic 105–118; BP diastolic 64–86; PULSE 67–86; RESP 16; TEMP 36.8–37.1; O2SAT 94–97; BMI 35.4
--- NOTE | 2021-12-09 | FALS_PTH ---
PATIENT: JAMSHID RODRIGUEZ [place] [facility] [place][id number] AGE/SX: 31/F ROOM: RE12/09/[address]: Dr. Olga Colvin DO : 1990 BED: DIS: 12/09/2021 SPEC #: [id number] RECD: 12/09/21 15:31 STATUS: MARY CLINT #: [id number] IMMANUEL: 12/09/21 00:[address]: Olga Colvin DEPT: SURGICAL PATHOLOGY RECD BY: Vitaly Johnson ENTERED: 12/10/21 10:26 SP TYPE: FALL TUBES OTHR DR: No Primary Care Phys Tissues: Fallopian tube Procedures: Surgery Specimen Level II HEADER OPERATION: Laparoscopic salpingectomy PRE-OP DIAGNOSIS: Sterilization TISSUE SUBMITTED: Bilateral fallopian tubes MICROSCOPIC DIAGNOSIS Right and left fallopian tubes, bilateral salpingectomies: Complete cross-sections of fallopian tubes with no pathologic change. AM:tim 12/11/2021 MICROSCOPIC DESCRIPTION Slides are reviewed. GROSS DESCRIPTION Received in fixative is one container labeled with the patient's name and designated bilateral fallopian tubes. The specimen consists of bilateral fallopian tubes including fimbrial ends measuring 8 cm in length and 0.5 cm in diameter and 6.5 cm in length and 0.5 cm in diameter. The fallopian tubes are not identified as right or left. Sections reveal unremarkable cut surfaces. Dross Puller sections are submitted in two cassettes with each cassette containing one fallopian tube. / DAVID:tim 12/10/2021 TC:4 CPT: 03865 x2
[2021-12-09 12:28] LABS: Internal QC Validated? YES +Cl - CLEAR BKGD; Pregnancy, Urine Negative Negative
[2021-12-09] MEDS: Lactated Ringers 1,000 ML 15 ML IV (12:35)
--- NOTE | 2021-12-09 12:47 | PCM.DC ---
Discharge Instructions Diet Discharge Diet: No restrictions Activity Discharge Activity: Return to Normal Activity, May Not Drive (for two weeks or while taking narcotic pain medications.), May Shower and May Take a Tub Bath (in 7 days) May resume sexual activity in: 1 week Weight Bearing Status: Full weight bearing Dressing / Incision Call your doctor if you observe: Using more than 1 pad per hour, Shortness of breath, Chest pain and Uncontrolled pain Suture Line Care: Avoid Pulling/Pushing and Avoid Pinching/Bending Remove Dressing in: 1 week (if present) Cleanse incision/area with: Soap & Water and Keep Dressing Clean & Dry Follow Up Care Please Follow Up With: Olga Colvin DO When: Call to make an appointment with your doctor for a follow up incision check in 1-2 weeks. Test Results: Test results from this visit will be discussed in further detail at your follow-up appointment, if applicable. Discharge Plan Admission Primary Reason for Your Visit: bilateral fallopian tube removal Attending Provider: Olga Colvin Primary Care Provider: Care Physician,Natacha Primary Discharge Orders/Prescriptions Prescriptions: New ibuprofen 800 mg tablet 800 mg PO Q8H PRN (Reason: pain) 7 Days Qty: 30 RF: 0 oxycodone-acetaminophen [Percocet] 5-325 mg tablet 1 tab PO Q6H PRN (Reason: pain) 3 Days Qty: 10 RF: 0 Continued sertraline [Zoloft] 50 mg tablet 50 mg PO QDAY RF: 0 Referrals / Follow Up: Care Physician,No Primary [Primary Care Provider] - Disposition Disposition (needs filled in before D/C Order can be placed): Home, Self Care
[2021-12-09] MEDS: Bupivacaine 0.25% 30 ML Vial (13:06)
--- NOTE | 2021-12-09 13:28 | PCM.OP.BLANK ---
Operative Report Date of Procedure: 12/09/21 Pre operative diagnosis: desires permanent sterilization Post-Operative Diagnosis: desires permanent sterilization Description of Surgical Findings:: normal uterus, fallopian tubes, cervix and Ovaries Surgeon: Olga Colvin tiger machine operator: Miranda Patel Type of Anesthesia: General Anesthesiologist: Nathan Huizar Specimen's removed: bilateral fallopian tubes Estimated Blood Loss (mL): 5cc Fluids Replaced: 800cc Description of Procedure: Patient was taken in the operating room and was placed under general anesthesia was prepped and draped in normal sterile fashion in the dorsal lithotomy position. Bladder was drained of clear urine and SCDs were on preoperatively. Uterus was sounded and a uterine manipulator was placed after dilating. Attention was then paid to the abdominal portion of the procedure. A 5 mm ioncision was made with an 11 blade after 0.25% marcaine was injected. A 5 mm optical trocar was placed under direct visualization and the abdomen was filled with C02. A left lower quadrant 5 mm port and a 1 mm minilap suprapubically were placed under direct visualization. Uterus was well visualized and bilateral fallopian tubes identified and bilateral tubes were elevated and transecting across the mesosalpinx and the attachment to the uterine corpus bilaterally the tubes were removed without complication. Excellent hemostasis was noted. Fallopian tubes were removed through the lower port sites without complication. Liver and upper abdomen were visualized notably within normal limits and no other gross abnormalities were seen in the abdomen. All instruments removed from the abdomen after gas was desufflated. Port sites were closed with 3-0 Monocryl Steri's and op sites were applied. All instruments removed from the vagina and patient was awoken and taken recovery in stable condition. Complications none Admit VTE Documentation VTE Present on Admission: Yes VTE Mechan Device Prophylaxis: SCD's VTE Pharm Prophylaxis ordered?: No Reason prophylaxis not ordered:: Treatment Not Indicated Multi Select Codes Urinary/Genital Urinary/Genital CPT Codes: 79916 Laproscopic BS/O
[2021-12-09] MEDS: oxyCODONE 5 MG Tablet PO (14:47)
[2021-12-09] MEDS: Acetaminophen 325 MG Tablet PO (14:47)
== END 2021-12-09 23:59 | disposition home or self-care (01) ==
LOC: SDC 11:50 → AC 11:52
PROVIDERS: Referring Provider Obstetrics & Gynecology; Visit Provider Obstetrics & Gynecology
PROC: (CPT 58661; principal; 2021-12-09 14:30)
DX: Z30.2 Encounter for sterilization (principal); F41.9 Anxiety disorder, unspecified; Z79.899 Other long term (current) drug therapy; Z87.891 Personal history of nicotine dependence
CPT/HCPCS: 58700; 00840; 36415; 81025; 85027; 86850; 86900; 86901; 87426; 88302; C9803; J7120; J2405

== ENCOUNTER 2024-05-30 18:26 | Emergency (ER) | payer SELFPAY ==
[2024-05-30 18:28] VITALS: BP 136/90; PULSE 84; RESP 18; TEMP 35.5; O2SAT 99
--- NOTE | 2024-05-30 18:30 | RAD_ITS ---
INDICATION: fall EXAMINATION/TECHNIQUE: X-RAY - RIGHT XR Tibia/Fibula 2 Views COMPARISON: None. FINDINGS: No acute fracture or malalignment. No blastic or lytic lesions. No degenerative changes are seen. The soft tissues are unremarkable. RAD/Tibia & Fibula 2 Views IMPRESSION: No acute radiographic abnormalities. Electronically Signed: Petey Urena MD at 18:49 EDT ,
--- NOTE | 2024-05-30 21:09 | EDS_ITS ---
HPI History of Present Illness Chief Complaint: Lower Extremity Injury Narrative Narrative: Patient is a 33-year-old female with no known significant past medical history who presented to the emergency department chief complaint of right leg pain. Patient states that earlier this evening she was getting down off a stool while hanging hollowing decorations and lost her balance. States that she landed on her right leg and was extremely painful which prompted her to come here for furt her evaluation management. Patient notes that the pain has significantly improved since her being here. She states that she was able to get up and ambulate in the waiting room to use the restroom. States that she has very minimal pain at this point time. [facility] History Wears glasses Anxiety Non-smoker Anemia Chronic hypertension during Home Medications ?Medication ?Instructions ?Recorded ?Last Taken ?Type sertraline 50 mg tablet (Zoloft) 50 mg PO QDAY ANXIETY DEPRESSIONH 09/10/21 09/09/21 21:00 History ibuprofen 800 mg tablet 800 mg PO Q8H PRN pain 7 days #30 12/09/21 Unknown Rx tabs oxycodone-acetaminophen 5 mg-325 1 tab PO Q6H PRN pain 3 days #10 12/09/21 Unknown Rx mg tablet (Percocet) tabs Allergy/AdvReac Type Severity Reaction Status Date / Time amoxicillin Allergy Hives Verified 05/30/24 18:27 Family History Mother Diabetes Social History adopted: No household members: significant other and children number of children: 2 current occupational status: employed current occupation: [employer] pets and animals: No Smoking Status: Former smoker alcohol intake: never substance use type: marijuana and other details: No use since positive test caffeine: Yes what type of physical activity do you participate in: none seatbelt use: never do you feel safe at home: Yes additional social history: Alejandro- ROS ROS ED ROS Narrative Constitutional: Denies any headaches, lightness, dizziness Cardiovascular: Denies chest pain or palpitations Respiratory: Denies coughing wheezing shortness of breath Abdomen: Denies nausea vomit diarrhea Neurological: Denies numbness, weakness, tingling Musculoskeletal: Complains of right leg pain as noted above Skin: Denies any rashes or lesions EXAM Physical Exam Narrative Exam Narrative: General: Patient was lying in bed rest comfortably did not appear to be in acute distress Head: Atraumatic, normocephalic Eyes: PERRL bilateral, EOMI bilateral, no conjunctival injection noted Neck: Soft, supple, trach midline Cardiovascular: Regular rate and rhythm no murmurs gallops rubs noted Respiratory: Clear to auscultation bilaterally Musculoskeletal: Patient has full range of motion of her knee and right lower extremity without any pain elicited all bony prominences palpated no pain elicited Extremities: DP pulses +2/4 in the bilateral lower extremities, no pedal edema on exam, +5/5 strength noted in the bilateral upper and lower extremities. Patient ambulated here in the emergency department on a pain Neurological: Patient follow commands knew that she is at [facility] year is 2023. Motor and sensation grossly intact in the bilateral lower extremities Skin: Warm, dry, intact Const Vital Signs: 05/30/24 18:28 Temperature 96 F L Temperature Source Temporal Pulse Rate 84 Respiratory Rate 18 Blood Pressure 136/90 H Blood Pressure Mean 105 Pulse Ox 99 Oxygen Delivery Method Room Air MDM MDM MDM Narrative Medical decision making narrative: Patient is a 33-year-old female who presents to the emergency department the chief complaint of right lower extremity pain after a fall earlier today. Patient had a workup started prior to my evaluation on the differential diagnose includes but not limited to tibial plateau fracture, proximal fibula fracture, musculoskeletal strain. Once workup is obtained reviewed she will be reevaluated. Patient's x-ray was reviewed and showed no acute radiographic abnormalities. Did discuss results with the patient and she would like to go home at this point time. She was advised to rotate Tylenol and ibuprofen [id number] and ice. She was advised to follow-up with her primary care physician outpatient setting and return with worsening symptoms or any other concerns. She is agreeable this plan as well as her significant other all question concerns answered she was discharged home in stable condition. Patient once again did ambulate around the room without any difficulty and no pain Radiography Diagnostic Testing: Clinical Impression(s) from Imaging Studies Tibia/Fibula X-Ray 05/30/24 18:30 IMPRESSION: No acute radiographic abnormalities. Electronically Signed: Petey Urena MD at 18:49 EDT , Discharge Plan Triage Chief Complaint: Lower Extremity Injury ED Provider: Allan Calabrese Dx/Rx/DC Orders Clinical Impression: Fall, Leg pain, right Prescriptions: No Action sertraline [Zoloft] 50 mg tablet 50 mg PO QDAY ibuprofen 800 mg tablet 800 mg PO Q8H PRN (Reason: pain) 7 Days Qty: 30 0RF oxycodone-acetaminophen [Percocet] 5-325 mg tablet 1 tab PO Q6H PRN (Reason: pain) 3 Days Qty: 10 0RF Primary Care Provider: Care Physician,No Primary Referrals: Care Physician,No Primary [Primary Care Provider] - Activity Restrictions/Additional Instructions: Follow-up with your primary care physician that you already established with. Ice, elevate, rotate Tylenol and ibuprofen [id number]. Return with worsening symptoms or any other concerns Print Language: [place] Disposition Disposition: Home, Self Care
== END 2024-05-30 21:20 | disposition home or self-care (01) ==
PROVIDERS: Emergency Provider Emergency Medicine; Visit Provider Emergency Medicine
DX: M79.604 Pain in right leg (principal); Z87.891 Personal history of nicotine dependence; F12.90 Cannabis use, unspecified, uncomplicated; F41.9 Anxiety disorder, unspecified; W08.XXXA Fall from other furniture, initial encounter
CPT/HCPCS: 73590; 99282

== ENCOUNTER 2024-12-18 10:50 | Emergency (ER) | payer MEDICAID, SELFPAY ==
[2024-12-18 10:52] VITALS: BP 161/105; PULSE 82; RESP 16; TEMP 36.3; O2SAT 99; BMI 36.6
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
--- NOTE | 2024-12-18 11:10 | ED.RN ---
Nba REECE stepped into room to let the pt know that she needs to contact the [facility] department to file the updated pictures. The original report was with the [facility] office. Pt lives in [place]. I contacted Luz [facility] ECHOLS to see patient for resources for her.
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
[2024-12-18 12:20] VITALS: BP 136/70; PULSE 79; RESP 14; TEMP 36.8; O2SAT 99
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
== END 2024-12-18 12:22 | disposition home or self-care (01) ==
PROVIDERS: Emergency Provider Emergency Medicine; PCP Clinical Nurse Specialist Adult Health; Visit Provider Emergency Medicine
DX: S09.90XA Unspecified injury of head, initial encounter (principal); S16.1XXA Strain of muscle, fascia and tendon at neck level, initial encounter; Z87.891 Personal history of nicotine dependence; Y04.8XXA Assault by other bodily force, initial encounter; F41.9 Anxiety disorder, unspecified; Z79.899 Other long term (current) drug therapy
CPT/HCPCS: 70450; 72125; 99282